=== PATIENT | female | born 2005 | race Caucasian/White ===

== ENCOUNTER 2024-12-11 17:03 | Emergency (ER) | payer BC, SELFPAY ==
[2024-12-11 17:11] VITALS: BP 168/99; PULSE 101; RESP 20; TEMP 37.2; O2SAT 94; BMI 31.9
--- NOTE | 2024-12-11 17:30 | ED_ITS ---
HPI - Nausea/Vomiting/Diarrhea General Chief complaint: Nausea/Vomiting Stated complaint: Vomiting/diarrhea/nausea Time Seen by Provider: 12/11/24 17:17 History of Present Illness HPI Narrative: This 18-year-old female comes in reporting persistent vomiting. She states he a has had episodes like this in the past here and there. She states that it seems to help a bit if she gets in a hot shower. She does use marijuana daily but states that she has not for a couple days recently. Related Data Home Medications ?Medication ?Instructions ?Recorded ?Confirmed aripiprazole IM 12/11/24 Allergies Allergy/AdvReac Type Severity Reaction Status Date / Time No Known Drug Allergies Allergy Verified 12/11/24 17:14 Review of Systems Status of ROS: Reports: 10 or more systems reviewed and unremarkable except as noted in History and below Narrative: Constitutional: No fevers, no weight gain or loss. Eyes: No discharge. No vision changes. HENT: No congestion, no sore throat, no ear pain. Cardiovascular: No chest pain, no palpitations. Respiratory: No shortness of breath, no wheezes, no cough. Gastrointestinal: No diarrhea. Upper epigastric abdominal pain with persistent vomiting. Genitourinary: No dysuria, no hematuria. Musculoskeletal: Normal range of motion. Skin: No rashes, no pruritis. Neurological: No dizziness, weakness, sensory change, speech change. Endo/Heme/Allergies: No bruising or bleeding. No polydipsia. Pysch: no suicidality, no anxiety, no insomnia. All other systems reviewed and are negative. PFSH PFS Social History Smoking Status: Never smoker Do you use any of these nicotine containing products: None How often do you have a drink containing alcohol: monthly or less How often do you have six or more drinks on one occasion: Never AUDIT-C Alcohol total score: 1 Non-prescribed substance use: marijuana (any form) Exam Narrative: Exam Narrative: Constitutional: Well-developed, well-nourished, no acute distress. HEENT: Normocephalic, atraumatic. Neck: Normal range of motion. Nontender. Supple. Heart: Regular. No murmurs. Normal rate. Intact distal pulses. Lungs: Clear to auscultation. No chest discomfort. No wheezes, rhonchi, or rales. Abdomen: Normal bowel sounds. Tenderness in the upper epigastrium. No rebound tenderness. Genitalia: Deferred. Back: No midline tenderness. Normal range of motion. Extremities: Normal range of motion. No injury. Skin: Intact. No rash. Warm. No erythema or pallor. Neurologic: No altered sensation. No weakness. Alert and oriented. Psychiatric: No suicidality. No anxiety or depression. No insomnia. Nursing notes and vitals signs are reviewed. Const: Vital Signs, click to edit/add: Vital Signs - 24 hr 12/11/24 17:11 Temperature 98.9 F Pulse Rate [Pulse Oximeter] 101 H Respiratory Rate 20 Blood Pressure [Ri ght Upper Arm] 168/99 H Pulse Oximetry 94 Oxygen Delivery Me thod Room Air Course Vital Signs Vital signs: Initial Vital Signs Temperature 98.9 F 12/11/24 17:11 Temperature Source Temporal Artery Scan 12/11/24 17:11 Pulse Rate 101 H 12/11/24 17:11 Respiratory Rate 20 12/11/24 17:11 Blood Pressure 168/99 H 12/11/24 17:11 Blood Pressure Mean 122 H 12/11/24 17:11 Blood Pressure Position Sitting 12/11/24 17:11 Pulse Oximetry 94 12/11/24 17:11 Oxygen Delivery Method Room Air 12/11/24 17:11 Vital Signs Temperature 98.9 F 12/11/24 17:11 Pulse Rate 101 H 12/11/24 17:11 Respiratory Rate 20 12/11/24 17:11 Blood Pressure 168/99 H 12/11/24 17:11 Pulse Oximetry 94 12/11/24 17:11 Oxygen Delivery Method Room Air 12/11/24 17:11 Temperature 98.9 F 12/11/24 17:11 Pulse Rate 101 H 12/11/24 17:11 Respiratory Rate 20 12/11/24 17:11 Blood Pressure 168/99 H 12/11/24 17:11 Pulse Oximetry 94 12/11/24 17:11 Oxygen Delivery Method Room Air 12/11/24 17:11 Medications Administered Medications: Discontinued Medications Generic Name Dose Route Start Last Admin Trade Name Freq PRN Reason Stop Dose Admin Haloperidol Lactate 5 mg 12/11/24 17:29 12/11/24 17:51 Haloperidol 5 Mg/Ml Inj IV 12/11/24 17:30 5 mg ONCE ONE Administration Sodium Chloride 500 mls @ 500 mls/hr 12/11/24 17:29 12/11/24 18:15 0.9 % Sodium Chloride 500 Ml IV 12/11/24 18:28 Infused .Q1H ONE Infusion Ondansetron HCl 4 mg 12/11/24 17:29 12/11/24 17:53 Ondansetron 2 Mg/Ml Inj IVP 12/11/24 17:30 4 mg ONCE ONE Administration MDM - Nausea/Vomiting/Diarrhea MDM Narrative Medical decision making narrative: This patient comes in with persistent vomiting related to marijuana use. An IV was established and she received 5 mg of Haldol and 4 mg of Zofran. She also received 500 mL of normal saline. She states that she is feeling much better. She is okay to be discharged home and I advised her to discontinue using marijuana. Discharge Plan Discharge Clinical Impression: Cyclical vomiting Patient Disposition: Home, Self-Care Condition: Improved Additional Instructions: Take frequent sips of fluids and increase diet otherwise as tolerated. Use [id number] medicines as needed and directed. Avoid using marijuana. Follow up with MD return if worsening. Prescriptions: No Action aripiprazole [Nikolas Aranaa] IM Follow Up/Referrals: Provider,Not a Local [Primary Care Provider] - Stand Alone Forms: [employer] Info Instructions
[2024-12-11] MEDS: 0.9 % SODIUM CHLORIDE 500 ML 500 ML IV (17:50)
[2024-12-11] MEDS: HALOPERIDOL 5 MG/ML INJ IV (17:51)
[2024-12-11] MEDS: ONDANSETRON 2 MG/ML inj 4 MG IVP (17:53)
--- OUTSIDE RECORDS SUMMARY | 2024-12-11 18:33 | XMS_ITS | Clinical Summary ---
Author Organization [facility] Address [address] [place] [address]. [place] [address] Care Team Providers Care Flux Mixer Name Role Phone No Ref-Primary, Physician Primary Care Provider Allergies Active Allergy Reactions Criticality Noted Date Comments Seasonal Allergies Other (See Comments) Low 020 Medications * This document contains information received from the source organization and may not represent a complete record from that organization. ARIPiprazole ER (ABILIFY MAINTENA) 400 MG extended release inj syringe Inject 400 mg into the muscle every 30 days 022 Active valACYclovir (VALTREX) 500 MG tablet Take 500 mg by mouth 2 times daily Active acetaminophen (TYLENOL) 325 MG tabletIndicati ons: (spontaneous vaginal delivery) Take 2 tablets (650 mg) by mouth every 4 hours as needed for mild pain or fever (greater than or equal to 38 C /100.4 F (oral) or 38.5 C/ 101.4 F (core).) 023 Active divalproex sodium extended-relea se (DEPAKOTE ER) 500 MG 24 hr tablet Take 2 tablets (1,000 mg) by mouth at bedtime 30 tablet 1 024 Active prochlorperazi ne (COMPAZINE) [address] 1 suppository (25 mg) rectally every 12 hours as needed for nausea. 6 suppository 024 Active ondansetron (ZOFRAN ODT) 4 MG ODT tab Take 1 tablet (4 mg) by mouth every 6 hours as needed for nausea. 8 tablet 024 2024 Discontinued ondansetron (ZOFRAN ODT) 4 MG ODT tab Take 1 tablet (4 mg) by mouth every 8 hours as needed for nausea. 9 tablet 025 2024 Active Problems Problem Noted Date Diagnosed Date Suicidal ideation 05/07/2024 Drug use 05/07/2024 labor 02/05/2023 delivery 02/05/2023 (spontaneous vaginal delivery) 02/05/2023 H/O herpes genitalis 02/05/2023 Short cervix affecting 02/05/2023 Bipolar disorder 02/05/2023 state, incidental 08/13/2022 Pelvic inflammatory disease 08/13/2022 Bacterial vaginosis in 08/13/2022 Anxiety Resolved Problems Problem Noted Date Diagnosed Date Resolved Date Indication for care in labor or delivery 01/30/2023 02/05/2023 31 weeks gestation of 01/30/2023 02/05/2023 Encounters Date Type Department Care Team Description 11/15/2024 10:57 AM CHANGE CONTROL COORDINATOR - 11/15/2024 5:48 PM [facility] Emergency Dept [address] [place] [address] Ankit Bailey MD Peery, Stephen, MD Nausea and vomiting, unspecified vomiting type; Nonspecific abdominal pain; Anxiety Discharge Disposition: Home or Self Care 11/15/2024 Travel from Last 3 Months Family History Medical History Relation Comments Bipolar Disorder Father Depression Father Bipolar Disorder Maternal Grandmother Anxiety Disorder Mother Bipolar Disorder Mother Depression Mother No Known Problems Other Relation Status Comments Father Maternal Grandmother Mother Other Social History Tobacco Use Types Packs/Day Years Used Date Smoking Tobacco: Never Smokeless Tobacco: Never Tobacco Cessation:Counseling Given: Yes Alcohol Use Standard Drinks/Week Comments Not Currently 0 (1 standard drink = 0.6 oz pur e alcohol) stopped for PHQ-2 Answer Date Recorded PHQ-2 Score 2 06/07/2024 [place] Depression Scale Answer Date Recorded Last EPDS Total Score Not on file 02/07/2023 The thought of harming myself has occurred to me . Never 02/07/2023 Adolescent Education Answer Date Record ed Getting School Help Needed Not on file 07/08 Comments No Sex and Gender Information Value Date Recorded Sex Assigned at Not on file Legal Sex Female 1:51 PM CDT Gender Identity Not on file Sexual Orientation Not on file Last Filed Vital Signs Vital Sign Reading Time Taken Comments Blood Pressure 134/87 11/15/2024 2:15 PM CHANGE CONTROL COORDINATOR Pulse 78 11/15/2024 4:25 PM CHANGE CONTROL COORDINATOR Temperature 36.2 C (97.1 F) 11/15/2024 11:21 AM CHANGE CONTROL COORDINATOR Respiratory Rate 18 11/15/2024 11:21 AM CHANGE CONTROL COORDINATOR Oxygen Saturation 97% 11/15/2024 4:25 PM CHANGE CONTROL COORDINATOR Inhaled Oxygen Concentration - - Weight 79.4 kg (175 lb) 06/04/2024 10:49 AM CDT pt reported Height 161.3 cm (5' 3.5) 06/04/2024 10:49 AM CD T Body Mass Index 30.51 06/04/2024 10:49 AM CDT Plan of Treatment Health Maintenance Due Date Last Done Comments ADVANCE CARE PLANNING 2003 ANNUAL REVIEW OF HM ORDERS 2003 MENINGITIS B IMMUNIZATION (2 of 2 - Bexsero SCDM 2-dose series) 05/31/2021 12/01/2020 HEPATITIS C SCREENING 12/17/2021 YEARLY PREVENTIVE VISIT 06/18/2022 06/18/2021, 10/31 COVID-19 Vaccine ( season) 2024 08/12/2023, 04/16/2021, 03/25/2021 INFLUENZA VACCINE (#1) 2024 , 07/07/2022, 08/28/2020, Additional history exists PHQ-2 (once per calendar year) 2024 06/07/2024, 06/07/2024, 05/21/2024, Additional history exists CHLAMYDIA SCREENING 07/15/2025 07/15/2024, 01/30/2023, 08/13/2022, Additional history exists DTAP/TDAP/TD IMMUNIZATION (8 - Td or Tdap) 01/04/2033 01/04/2023, 01/24/2015, 04/18/2009, Additional history exists ZOSTER IMMUNIZATION (1 of 2) 12/17/2053 HEPATITIS B IMMUNIZATION Completed 007, 02/12/2005, 06/23/2004, Additional history exists Pneumococcal Vaccine: Pediatrics (0 to 5 Years) and At-Risk Patients (6 to 49 Years) Aged Out 04/24/2007, 04/18/2007, 02/12/2005, Additional history exists No longer eligible based on patient's age to complete this topic HPV IMMUNIZATION Completed 07/13/2018, 01/24/2015 MENINGITIS IMMUNIZATION Completed 12/25/2019, 01/24 HIV SCREENING Completed 08/15/2022 Procedures Procedure Name Priority Date/Time Associated Diagnosis Comments ROUTINE UA WITH MICROSCOPIC STAT 11/15/2024 1:43 PM CHANGE CONTROL COORDINATOR CBC WITH PLATELETS & DIFFERENTIAL STAT 11/15/2024 11:49 AM CHANGE CONTROL COORDINATOR CBC WITH PLATELETS AND DIFFERENTIAL STAT 11/15/2024 11:49 AM CHANGE CONTROL COORDINATOR INFLUENZA A/B, RSV AND SARS-COV2 PCR STAT 11/15/2024 11:49 AM CHANGE CONTROL COORDINATOR ETHYL ALCOHOL LEVEL STAT 11/15/2024 1 1:49 AM CHANGE CONTROL COORDINATOR HCG QUALITATIVE STAT 11/15/2024 11:49 AM CHANGE CONTROL COORDINATOR LIPASE STAT 11/15/2024 11:49 AM CHANGE CONTROL COORDINATOR HEPATIC FUNCTION PANEL STAT 11/15/2024 11:49 AM CHANGE CONTROL COORDINATOR BASIC METABOLIC PANEL STAT 11/15/2024 11:49 AM CHANGE CONTROL COORDINATOR EKG 12-LEAD, TRACING ONLY STAT 11/15/2024 11:31 AM CHANGE CONTROL COORDINATOR CHLAMYDIA TRACHOMATIS/NEISSERIA GONORRHOEAE BY PCR STAT 07/15/2024 9:43 PM CDT HIV ANTIGEN ANTIBODY COMBO Add-On 08/15/2022 3:20 PM CDT from Last 3 Months or Most Recently Relevant to Health Maintenance Results * (ABNORMAL) UA with Microscopic (11/15/2024 1:43 PM CHANGE CONTROL COORDINATOR) Color Urine Straw Colorless, Straw, Light Yellow, Yellow 11/15/2024 2:07 PM CHANGE CONTROL COORDINATOR LABORATORY Appearance Urine Clear Clear 11/15/19 2:07 PM CHANGE CONTROL COORDINATOR LABORATORY Glucose Urine 100(A) Negative mg/dL 11/15/2024 2:07 PM CHANGE CONTROL COORDINATOR LABORATORY Bilirubin Urine Negative Negative 2:07 PM CHANGE CONTROL COORDINATOR LABORATORY Ketones Urine 40(A) Negative mg/dL 11/15/2024 2:07 PM CHANGE CONTROL COORDINATOR LABORATORY Specific Martin Urine 1.017 1.003 - 1.035 11/15/2024 2:07 PM CHANGE CONTROL COORDINATOR LABORATORY Blood Urine Negative Negative 11/15/2024 2:07 PM CHANGE CONTROL COORDINATOR LABORATORY pH Urine 7.0 5.0 - 7.0 11/15/2024 2:07 PM CHANGE CONTROL COORDINATOR LABORATORY Protein Albumin Urine Negative Negative mg/dL 11/15/2024 2:07 PM CHANGE CONTROL COORDINATOR LABORATORY Urobilinogen Urine Normal Normal, 2.0 mg/dL 11/15/2024 2:07 PM CHANGE CONTROL COORDINATOR LABORATORY Nitrite Urine Negative Negative 11/15/2024 2:07 PM CHANGE CONTROL COORDINATOR LABORATORY Leukocyte Esterase Urine Negative Negative 11/15/2024 2:07 PM CHANGE CONTROL COORDINATOR LABORATORY Mucus Urine Present(A) None Seen /LPF 11/15/2024 2:07 PM CHANGE CONTROL COORDINATOR LABORATORY RBC Urine 1 <=2 /HPF 11/15/2024 2:07 PM CHANGE CONTROL COORDINATOR LABORATORY WBC Urine <1 <=5 /HPF 11/15/2024 2:07 PM CHANGE CONTROL COORDINATOR LABORATORY Squamous Epithelials Urine 1 <=1 /HPF 11/15/2024 2:07 PM CHANGE CONTROL COORDINATOR LABORATORY Urine MID-STREAM URINE SPECIMEN / Unknown Non-blood Collection / Unknown 11/15/2024 1:43 PM CHANGE CONTROL COORDINATOR 11/15/2024 1:52 PM CHANGE CONTROL COORDINATOR us Ankit Bailey MD LAB - URINE ORDERABLES Final Result LABORATORY [facility] [address] Lab (1st floor, no room number) [place] [address] * (ABNORMAL) CBC with platelets and differential (11/15/2024 11:49 AM CHANGE CONTROL COORDINATOR) WBC Count 15.6(H) 4.0 - 11.0 10e3/uL 11/15/2024 12:32 PM CHANGE CONTROL COORDINATOR [facility] LABORATORY RBC Count 4.44 3.80 - 5.20 10e6/uL 11/15/2024 12:32 PM CHANGE CONTROL COORDINATOR [facility] Hemoglobin 13.8 11.7 - 15.7 g/dL 11/15/2024 12:32 PM CHANGE CONTROL COORDINATOR [facility] Hematocrit 41.7 35.0 - 47.0 % 11/15/2024 12:32 PM CHANGE CONTROL COORDINATOR [facility] MCV 94 78 - 100 fL 11/15/2024 12:32 PM CHANGE CONTROL COORDINATOR [facility] LAB[facility]ATORY MCH 31.1 26.5 - 33.0 pg 11/15/2024 12:32 PM CHANGE CONTROL COORDINATOR [facility]AT[facility] MCHC 33.1 31.5 - 36.5 g/dL 11/15/2024 12:32 PM CHANGE CONTROL COORDINATOR [facility] RDW 12.6 10.0 - 15.0 % 11/15/2024 12:32 PM CHANGE CONTROL COORDINATOR [facility] Platelet Count 330 150 - 450 10e3/uL 11/15/2024 12:32 PM CHANGE CONTROL COORDINATOR [facility] % Neutrophils 64 % 11/15/2024 12:32 PM CHANGE CONTROL COORDINATOR [facility] % Lymphocytes 28 % 11/15/2024 12:32 PM CHANGE CONTROL COORDINATOR [facility] % Monocytes 6 % 11/15/2024 12:32 PM CHANGE CONTROL COORDINATOR [facility] % Eosinophils 0 % 11/15/2024 12:32 PM CHANGE CONTROL COORDINATOR [facility] % Basophils 0 % 11/15/2024 12:32 PM CHANGE CONTROL COORDINATOR [facility] % Immature Granulocytes 1 % 11/15/2024 12:32 PM CHANGE CONTROL COORDINATOR [facility] LAB[facility]ATORY NRBCs per 100 WBC 0 <1 /100 025 12:32 PM CHANGE CONTROL COORDINATOR [facility] LAB[facility]ATORY Absolute Neutrophils 10.0(H) 1.6 - 8.3 10e3/uL 11/15/2024 12:32 PM CHANGE CONTROL COORDINATOR [facility] LAB[facility]AT[facility] Absolute Lymphocytes 4.3 0.8 - 5.3 10e3/uL 11/15/2024 12:32 PM CHANGE CONTROL COORDINATOR [facility] LAB[facility]AT[facility] Absolute Monocytes 1.0 0.0 - 1.3 10e3/uL 11/15/2024 12:32 PM CHANGE CONTROL COORDINATOR [facility] LAB[facility]AT[facility] Absolute Eosinophils 0.1 0.0 - 0.7 10e3/uL 11/15/2024 12:32 PM CHANGE CONTROL COORDINATOR [facility] LABORATORY Absolute Basophils 0.1 0.0 - 0.2 10e3/uL 11/15/2024 12:32 PM CHANGE CONTROL COORDINATOR [facility] LAB[facility]AT[facility] Absolute Immature Granulocytes 0.2 <=0.4 10e3/uL 11/15/2024 12:32 PM CHANGE CONTROL COORDINATOR [facility] LAB[facility]ATORY Absolute NRBCs 0.0 10e3/uL 11/15/2024 12:32 PM CHANGE CONTROL COORDINATOR LABORATORY Blood BLOOD SPECIMEN / Unknown Venipuncture / Unknown 11/15/2024 11:49 AM CHANGE CONTROL COORDINATOR 11/15/2024 12:24 PM CHANGE CONTROL COORDINATOR us Ankit Bailey MD LAB - BLOOD ORDERABLES Final Result LABORATORY [facility] [address] [facility] Lab (1st floor, no room number) [place] [address] * Influenza A/B, RSV and SARS-CoV2 PCR (COVID-19) Nasopharyngeal (11/15/2024 11:49 AM CHANGE CONTROL COORDINATOR) [facility] Influenza A PCR Negative Negative 11/15/2024 1:41 PM CHANGE CONTROL COORDINATOR [facility] LABORATORY Influenza B PCR Negative Negative 11/15/2024 1:41 PM CHANGE CONTROL COORDINATOR [facility] LABORATORY RSV PCR Negative Negative 11/15/2024 1:41 PM CHANGE CONTROL COORDINATOR LABORATORY SARS CoV2 PCR Negative Negative 11/15/2024 1:41 PM CHANGE CONTROL COORDINATOR LABORATORY Comment:NEGATIVE: SARS-CoV-2 (COVID-19) RNA not detected, presumed negative. Swab NASOPHARYNGEAL STRUCTURE / Unknown Non-blood Collection / Unknown 11/15/2024 11:49 AM CHANGE CONTROL COORDINATOR 11/15/2024 12:24 PM CHANGE CONTROL COORDINATOR Narrative LABORATORY - 11/15/2024 1:41 PM CHANGE CONTROL COORDINATOR Testing was performed using the Xpert Xpress CoV2/Flu/RSV Assay on the [employer] GeneXpert Instrument. This test should be ordered for the detection of SARS- CoV2, influenza, and RSV viruses in individuals with signs and symptoms of respiratory tract infection. This test is for in vitro diagnostic use under the [place] FDA for laboratories certified under CLIA to perform high or moderate complexity testing. This test has been [place] FDA cleared. A negative result does not rule out the presence of PCR inhibitors in the specimen or target RNA in concentration below the limit of detection for the assay. If only one viral target is positive but coinfection with multiple targets is suspected, the sample should be re-tested with another FDA cleared, approved, or authorized test, if coninfection would change clinical management. This test was validated by the [facility]. These laboratories are certified under the Clinical Laboratory Improvement Amendments of 1988 (CLIA-88) as qualified to perfom high complexity laboratory testing. Ankit Bailey MD LAB - MICRO GENERAL ORD ERABLES Final Result [facility] [address] [facility] ([facility] floor, no room number) [place] [address] * Lipase (11/15/2024 11:49 AM CHANGE CONTROL COORDINATOR) Lipase 14 13 - 60 U/L 11/15/2024 12:54 PM CHANGE CONTROL COORDINATOR LABORATORY Blood BLOOD SPECIMEN / Unknown Venipuncture / Unknown 11/15/2024 11:49 AM CHANGE CONTROL COORDINATOR 11/15/2024 12:24 PM CHANGE CONTROL COORDINATOR Ankit Bailey MD LAB - BLOOD ORDERABLES Final Result [facility] [address] [facility] Lab (1st floor, no room number) [place] [address] * Hepatic function panel (11/15/2024 11:49 AM CHANGE CONTROL COORDINATOR) Protein Total 6.9 6.4 - 8.3 g/dL 11/15/2024 12:54 PM CHANGE CONTROL COORDINATOR [facility] LAB[facility]AT[facility] Albumin 4.3 3.5 - 5.2 g/dL 11/15/2024 12:54 PM CHANGE CONTROL COORDINATOR LABORATORY Bilirubin Total 0.2 <=1.2 mg/dL 11/15/2024 12:54 PM CHANGE CONTROL COORDINATOR [facility] Alkaline Phosphatase 57 40 - 150 U/L 11/15/2024 12:54 PM CHANGE CONTROL COORDINATOR [facility] LAB[facility]AT[facility] AST 18 0 - 45 U/L 11/15/2024 12:54 PM CHANGE CONTROL COORDINATOR [facility] LAB[facility] ALT 21 0 - 50 U/L 11/15/2024 12:54 PM CHANGE CONTROL COORDINATOR [facility] Bilirubin Direct <0.20 0.00 - 0.30 mg/dL 11/15/2024 12:54 PM CHANGE CONTROL COORDINATOR [facility] LABORATORY Blood BLOOD SPECIMEN / Unknown Venipuncture / Unknown 11/15/2024 11:49 AM CHANGE CONTROL COORDINATOR 11/15/2024 12:24 PM CHANGE CONTROL COORDINATOR Ankit Bailey MD LAB - BLOOD ORDERABLES Final Result [facility] [address] Lab (1st floor, no room number) [place] [phone] * HCG QUALitative (blood) (11/15/2024 11:49 AM CHANGE CONTROL COORDINATOR) hCG Serum Qualitative Negative Negative KENA 11/15/2024 12:59 PM CHANGE CONTROL COORDINATOR [facility] LABORATORY Comment:This test is for scr eening purposes. Results should be interpreted along with the clinical picture. Confirmation testing is available if warranted by ordering [id number], HCG Quantitative . Blood BLOOD SPECIMEN / Unknown Venipuncture / Unknown 11/15/2024 11:49 AM CHANGE CONTROL COORDINATOR 11/15/2024 12:24 PM CHANGE CONTROL COORDINATOR Ankit Bailey MD LAB - BLOOD ORDERABLES Final Result [facility] [address] Lab (1st floor, no room number) [place] [address] * Alcohol level blood (11/15/2024 11:49 AM CHANGE CONTROL COORDINATOR) Alcohol ethyl <0.01 <=0.01 g/dL 11/15/2024 12:54 PM CHANGE CONTROL COORDINATOR [facility] LABORATORY Blood BLOOD SPECIMEN / Unknown Venipuncture / Unknown 11/15/2024 11:49 AM CHANGE CONTROL COORDINATOR 11/15/2024 12:24 PM CHANGE CONTROL COORDINATOR us Ankit Bailey MD LAB - BLOOD ORDERABLES Final Result LABORATORY [facility] [address] Lab (1st floor, no room number) [place] [address] * (ABNORMAL) Basic metabolic panel (11/15/2024 11:49 AM CHANGE CONTROL COORDINATOR) [facility] Sodium 137 135 - 145 mmol/L 11/15/2024 12:54 PM [facility] Potassium 3.6 3.4 - 5.3 mmol/L 11/15/2024 12:54 PM [facility] Chloride 103 98 - 107 mmol/L 11/15/2024 12:54 PM [facility] Carbon Dioxide (CO2) 22 22 - 29 mmol/L 11/15/2024 12:54 PM [facility] Anion Gap 12 7 - 15 mmol/L 11/15/2024 12:54 PM [facility] Urea Nitrogen 10.2 6.0 - 20.0 mg/dL 11/15/2024 12:54 PM [facility] Creatinine 0.84 0.51 - 0.95 mg/dL 11/15/2024 12:54 PM [facility] GFR Estimate >90 >60 mL/min/1.7 3m2 11/15/2024 12:54 PM [facility] Comment:eGFR calculated [facility] 2020 CKD-EPI equation. Calcium 8.9 8.8 - 10.4 mg/dL 11/15/2024 12:54 PM [facility] Glucose 150(H) 70 - 99 mg/dL 11/15/2024 12:54 PM [facility] Blood BLOOD SPECIMEN / Unknown Venipuncture / Unknown 11/15/2024 11:49 AM CHANGE CONTROL COORDINATOR 11/15/2024 12:24 PM CHANGE CONTROL COORDINATOR Ankit Bailey MD LAB - BLOOD ORDERABLES Final Result LABORATORY [facility] [address] Lab (1st floor, no room number) [place] [address], [facility] * EKG 12 lead (11/15/2024 11:31 AM CHANGE CONTROL COORDINATOR) Systolic Blood Pressure mmHg RADIOLOGY RESULTS Diastolic Blood Pressure mmHg RADIOLOGY RESULTS Ventricular Rate 80 BPM RAD IOLOGY RESULTS Atrial Rate 80 BPM RADIOLOG Y RESULTS AR Interval 144 ms RADIOLOG Y RESULTS QRS Duration 82 ms RADIOLO GY RESULTS QT 414 ms RADIOLOGY RESULTS QTc 477 ms RADIOLOGY RESULTS P [place] 48 degrees RADIOLOGY RESULTS R AXIS 58 degrees RADIOLOGY RESULTS T [place] 48 degrees RADIOLOGY RESULTS Interpretation ECG Sinus rhythm Normal ECG No previous ECGs available Unconfirmed report - interpretation of this ECG is computer generated - see medical record for final interpretation Confirmed by - EMERGENCY ROOM, PHYSICIAN ([id number]), business editor TATA CRUZ ([id number]) on 11/15/2024 2:28:14 PM RADIOLOGY RESULTS 11/15/2024 11:3 1 AM CHANGE CONTROL COORDINATOR 11/15/2024 2:28 PM CHANGE CONTROL COORDINATOR us Ankit Bailey MD ECG ORDERABLES Edited Result - Final RADIOLOGY RESULTS * Chlamydia trachomatis/Neisseria gonorrhoeae by PCR (07/15/2024 9:43 PM CDT) Chlamydia Trachomatis Negative Negative 07/16/2024 11:01 AM CDT [facility] Comment: Negative for C. trachomatis rRNA by tube worker mediated amplification. A negative result by tube worker mediated amplification does not preclude the presence of infection because results are dependent on proper and adequate collection, absence of inhibitors and sufficient rRNA to be detected. Neisseria gonorrhoeae Negative Negative 07/16/2024 11:01 AM CDT [facility] Comment:Negative for N. gono rrhoeae rRNA by tube worker mediated amplification. A negative result by tube worker mediated amplification does not preclude the presence of C. trachomatis infection because results are dependent on proper and adequate collection, absence of inhibitors and sufficient rRNA to be detected. Swab CERVIX UTERI STRUCTURE / Unknown Non-blood Collection / Unknown 07/15/2024 9:43 PM CDT 07/15/2024 9:47 PM CDT us Paul Bryant MD LAB - MICRO GENERAL MIKE OSULLIVAN Final Result [facility]. Diseases Diag. Lab [address] [facility] [address] [facility] [place] [address] * HIV Antigen Antibody Combo (08/15/2022 3:20 PM CDT) HIV Antigen Antibody Combo Nonreactive Nonreactive 08/16/2022 4:51 PM CDT [facility] DO Comment:HIV-1 p24 Ag & HIV-1 /HIV-2 Ab Not Detected Blood STRUCTURE OF RIGHT UPPER LIMB / Unknown Venipuncture / Unknown 08/15/2022 3:20 PM CDT 08/15/2022 3:52 PM CDT Sharda Singer MD LAB - BLOOD ORDERABLES Final Res ult [facility]Endo [address] [facility], [id number] [phone] from Last 3 Months or Most Recently Relevant to Health Maintenance Insurance [id number] [place] [employer] [facility] [place] [facility] [place] Address: [id number] [place] [phone] [place] [address] [facility] [place] [place] Address: [address] [place] [phone] Advance Directives For more information, please contact: [phone] * Full Code (Latest Code Status on File) Date Activated Date Inactivated Comments 02/05/2023 8:57 PM 02/08/2023 3:08 PM All basic an d advanced life-sustaining interventions are performed as appropriate Question Answer Comments Code status determined by: Discussion with wilner nt/ legal decision maker * Full Code Date Activated Date Inactivated Comments 01/30/2023 6:17 PM 02/05/2023 8:57 PM All basic an d advanced life-sustaining interventions are performed as appropriate Question Answer Comments Code status determined by: Other (please eitan ornelas) * Full Code Date Activated Date Inactivated Comments 08/14/2022 1:10 AM 08/19/2022 2:29 PM All basic a nd advanced life-sustaining interventions are performed as appropriate Question Answer Comments Code status determined by: Discussion with mileye nt/ legal decision maker Care Teams Flux Mixer Relationship Specialty Start Date End Date No Ref-Primary, Physician PCP - General 07/04/19
--- OUTSIDE RECORDS SUMMARY | 2024-12-11 18:33 | XMS_ITS | Encounter Summary ---
Author Organization [place] Address [address] [place] [address]. [place] [address] Care Team Providers Care Telephone Technician Name Role Phone No Ref-Primary, Physician Primary Care Provider Reason for Visit * Reason Comments Ingestion Encounter Details Date Type Department Care Team (Late st Contact Info) Description 11/15/2024 10:57 AM STUDENT - 11/15/2024 5:48 PM [facility] Emergency Dept [address] [place] [address] Ankit Bailey MD [facility] [address] [address] Bob Torres MD [facility] [address], [address] [address] Nausea and vomiting, unspecified vomiting type; Nonspecific abdominal pain; Anxiety Discharge Disposition: Home or Self Care Social History Tobacco Use Types Packs/Day Years Used Date Smoking Tobacco: Never Smokeless Tobacco: Never Alcohol Use Standard Drinks/Week Comments Not Currently 0 (1 standard drink = 0.6 oz pur e alcohol) stopped for PHQ-2 Answer Date Recorded PHQ-2 Score 2 06/07/2024 Boomer Depression Scale Answer Date Recorded Last EPDS [...] on file Sexual Orientation Not on file documented as of this encounter Last Filed Vital Signs Vital Sign Reading Time Taken Comments Blood Pressure 134/87 11/15/2024 2:15 PM STUDENT Pulse 78 11/15/2024 4:25 PM STUDENT Temperature 36.2 C (97.1 F) 11/15/2024 11:21 AM STUDENT Respiratory Rate 18 11/15/2024 11:21 AM STUDENT Oxygen Saturation 97% 11/15/2024 4:25 PM STUDENT Inhaled Oxygen Concentration - - Weight - - Height - - Body Mass Index - - documented in this encounter Discharge Instructions * Attachments The following attachments cannot be sent through Care Everywhere. * Abdominal Pain (Citizen [place]) * Nausea and Vomiting ([place]izen [place]) documented in this encounter Medications at Time of Discharge acetaminophen (TYLENOL) 325 MG tabletIndication s: (spontaneous vaginal delivery) Take 2 tablets (650 mg) by mouth every 4 hours as needed for mild pain or fever (greater than or equal to 38 C /100.4 F (oral) or 38.5 C/ 101.4 F (core).) 02/08/2023 ARIPiprazole ER (ABILIFY MAINTENA) 400 MG extended release inj syringe Inject 400 mg into the muscle every 30 days 05/10/2022 divalproex sodium extended-release (DEPAKOTE ER) 500 MG 24 hr tablet Take 2 tablets (1,000 mg) by mouth at bedtime 30 tablet 1 05/09/2024 prochlorperazine (COMPAZINE) [address] 1 suppository (25 mg) rectally every 12 hours as needed for nausea. 6 suppository 07/15/2024 valACYclovir (VALTREX) 500 MG tablet Take 500 mg by mouth 2 times daily ondansetron (ZOFRAN ODT) 4 MG ODT tab Take 1 tablet (4 mg) by mouth every 8 hours as needed for nausea. 9 tablet 11/15/2024 11/18/19 25 documented as of this encounter ED Notes * Narda Griffith RN - 11/15/2024 11:22 AM CST Pt arrives via ems- was picked up from [place] where she is homeless living in her car. Pt has past hx of anxiety and depressions- states its gotten so bad that she took 100mg zoloft out of desperation. Denies SI/HI. 8/10 abdominal pain - given 4mg zofran w no relief. VSS Triage Assessment (Adult) Row Name 11/15/24 1122 Triage Assessment Airway WDL WDL Respiratory WDL Respiratory WDL WDL Skin Circulation/Temperature WDL Skin Circulation/Temperature WDL WDL Cardiac WDL Cardiac WDL WDL ENT * Ankit Bailey MD - 11/15/2024 11:00 AM CST Emergency Department Note History of Present Illness Chief Complaint Ingestion HPI Gifty Marquez is a 18 year old female with a history as noted below who presents to the emergency department for ingestion. EMS states that this morning, the patient took 100 mg of her friend'Fernandoolohussein. She reports that she took Zoloft in the past for her hx of anxiety and depression and needed to take something today for current anxiety and depression. She denies any suicidal ideations and adds that this was not a suicide attempt. She reports that within the past 1 hour, she has experienced 3 episodes of nausea and vomiting. She also endorses some lightheadedness and mid sternal chesttightness. She was given 4 mg of PO Zofran by EMS. BG was 140. She notes that for the past few days, she has been feeling fine. No urinary symptoms. No cough or cold symptoms. No concern for . Denies any coingestions or ETOH use today. She reports that for the past few weeks, she has been living in her car in [place] and adds that she is unsure when her housing situation may improve. Independent Historian None Review of External Notes Past Medical History Medical History and Problem List Anxiety Alcohol use disorder Bipolar disorder BV in Chlamydia MDD HSV Hyperemesis gravidarum Suicide attempt PID PTSD Medications ARIPiprazole ER (ABIJOSELYN MAINTENA) 400 MG extended release inj syringe divalproex sodium extended-release (DEPAKOTE ER) 500 MG 24 hr tablet ondansetron (ZOFRAN ODT) 4 MG ODT tab prochlorperazine (COMPAZINE) 25 MG suppository valACYclovir (VALTREX) 500 MG tablet Surgical History Resection of tonsils Physical Exam Patient Vitals for the past 24 hrs: BP Temp Temp src Pulse Resp SpO2 11/15/24 1445 -- -- -- 65 -- 96 % 11/15/24 1415 134/87 -- -- 67 -- 95 % 11/15/24 1400 122/79 -- -- 84 -- 96 % 11/15/24 1345 (!) 139/92 -- -- 91 -- 93 % 11/15/24 1121 132/76 97.1 ??F (36.2 ??C) Temporal 81 18 99 % Physical Exam HENT: mmm, no rhinorrhea Eyes: periorbital tissues and sclera normal Neck: supple, no abnormal swelling Lungs: CTAB, no resp distress CV: rrr, no m/r/g, ppi Abd: soft, nontender, nondistended, no rebound/masses/guarding/hsm Ext: no peripheral edema Skin: warm, dry, well perfused, no rashes/bruising/lesions on exposed skin Neuro: alert, MAEE, no gross motor or sensory deficits, gait stable Psych: Normal mood, normal affect, no suicidal homicidal ideation Diagnostics Lab Results Labs Ordered and Resulted from Time of ED Arrival to Time of ED Departure BASIC METABOLIC PANEL - Abnormal Result Value Sodium 137 Potassium 3.6 Chloride 103 Carbon Dioxide (CO2) 22 Anion Gap 12 Urea Nitrogen 10.2 Creatinine 0.84 GFR Estimate >90 Calcium 8.9 Glucose 150 (*) ROUTINE UA WITH MICROSCOPIC - Abnormal Color Urine Straw Appearance Urine Clear Glucose Urine 100 (*) Bilirubin Urine Negative Ketones Urine 40 (*) Specific [place] Urine 1.017 Blood Urine Negative pH Urine 7.0 Protein Albumin Urine Negative Urobilinogen Urine Normal Nitrite Urine Negative Leukocyte Esterase Urine Negative Mucus Urine Present (*) RBC Urine 1 WBC Urine <1 Squamous Epithelials Urine 1 CBC WITH PLATELETS AND DIFFERENTIAL - Abnormal WBC Count 15.6 (*) RBC Count 4.44 Hemoglobin 13.8 Hematocrit 41.7 MCV 94 MCH 31.1 MCHC 33.1 RDW 12.6 Platelet Count 330 % Neutrophils 64 % Lymphocytes 28 % Monocytes 6 % Eosinophils 0 % Basophils 0 % Immature Granulocytes 1 NRBCs per 100 WBC 0 Absolute Neutrophils 10.0 (*) Absolute Lymphocytes 4.3 Absolute Monocytes 1.0 Absolute Eosinophils 0.1 Absolute Basophils 0.1 Absolute Immature Granulocytes 0.2 Absolute NRBCs 0.0 HEPATIC FUNCTION PANEL - Normal Protein Total 6.9 Albumin 4.3 Bilirubin Total 0.2 Alkaline Phosphatase 57 AST 18 ALT 21 Bilirubin Direct <0.20 LIPASE - Normal Lipase 14 HCG QUALITATIVE - Normal hCG Serum Qualitative Negative ETHYL ALCOHOL LEVEL - Normal Alcohol ethyl <0.01 INFLUENZA A/B, RSV AND SARS-COV2 PCR - Normal Influenza A PCR Negative Influenza B PCR Negative RSV PCR Negative SARS CoV2 PCR Negative Imaging None EKG ECG results from 11/15/24 EKG 12 lead Value Systolic Blood Pressure Diastolic Blood Pressure Ventricular Rate 80 Atrial Rate 80 [place] Interval 144 QRS Duration 82 QT 414 QTc 477 P [place] 48 R AXIS 58 T [place] 48 Interpretation ECG Sinus rhythm Normal ECG No previous ECGs available Unconfirmed report - interpretation of this ECG is computer generated - see medical record for final interpretation Confirmed by - EMERGENCY ROOM, PHYSICIAN ([id number]), medical editor TATA CRUZ ([id number]) on 11/15/2024 2:28:14PM Independent Interpretation None ED Course Medications Administered Medications lactated ringers BOLUS 1,000 mL (0 mLs Intravenous Stopped 11/15/24 1341) ondansetron (ZOFRAN) injection 4 mg (4 mg Intravenous $Given 11/15/24 1144) ketorolac (TORADOL) injection 15 mg (15 mg Intravenous $Given 11/15/24 1144) ondansetron (ZOFRAN) injection 4 mg (4 mg Intravenous $Given 11/15/24 1252) haloperidol lactate (HALDOL) injection 2.5 mg (2.5 mg Intravenous $Given 11/15/24 1348) diphenhydrAMINE (BENADRYL) injection 25 mg (25 mg Intravenous $Given 11/15/24 1348) lactated ringers BOLUS 1,000 mL (1,000 mLs Intravenous $New Bag 11/15/24 1348) Discussion of Management ED Course ED Course as of 11/15/24 1555 [facility] Nov 15, 2024 1109 I obtained history and examined the patient as noted above. Additional Documentation None Medical Decision Making / Diagnosis [facility] Diagnoses: None MIPS None MDM Gifty Marquez is a 18 year old female Presenting with nausea vomiting and nonspecific abdominal pain. There is also an element of anxiety. I am not concerned clinically for any intentional self-harm or overdose. Workup here unremarkable. Had some ongoing nausea and vomiting and so got additional intravenous fluid and antiemetics. There is a strong odor of THC I suspect that cyclical vomiting could be the equipment driver of her presenting symptoms. I do not see an indication for advanced imaging of the abdomen. Discussed with her that once her symptoms are controlled she will be discharged from the emergency room with antiemetics. She verbalized understanding of that. Disposition The patient was discharged. Diagnosis ICD-10-CM 1. Nausea and vomiting, unspecified vomiting type R11.2 2. Nonspecific abdominal pain R10.9 3. Anxiety F41.9 Discharge Medications New Prescriptions ONDANSETRON (ZOFRAN ODT) 4 MG ODT TAB Take 1 tablet (4 mg) by mouth every 8 hours as needed for nausea. Scribe Disclosure: I, Bandar Szymanski, am serving as a scribe at 11:02 AM on 11/15/2024 to document services personally performed by Ankit Bailey MD based on my observations and the provider's statements to me. Ankit Bailey MD 11/15/24 1556 ENT * Digna Nichols RN - 11/15/2024 10:57 AM CST Bed: ED06 Expected date: Expected time: Means of arrival: Comments: Court 525 ENT documented in this encounter Plan of Treatment Not on file documented as of this encounter Procedures Procedure Name Priority Date/Time Associated Diagnosis Comments ROUTINE UA WITH MICROSCOPIC STAT 11/15/2024 1:43 PM STUDENT CBC WITH PLATELETS AND DIFFERENTIAL STAT 11/15/2024 11:49 AM STUDENT INFLUENZA A/B, RSV AND SARS-COV2 PCR STAT 11/15/2024 11:49 AM STUDENT CBC WITH PLATELETS & DIFFERENTIAL STAT 11/15/2024 11:49 AM STUDENT LIPASE STAT 11/15/2024 11:49 AM STUDENT HEPATIC FUNCTION PANEL STAT 11/15/2024 11:49 AM STUDENT HCG QUALITATIVE STAT 11/15/2024 11:49 AM STUDENT ETHYL ALCOHOL LEVEL STAT 11/15/2024 1 1:49 AM STUDENT BASIC METABOLIC PANEL STAT 11/15/2024 11:49 AM STUDENT EKG 12-LEAD, TRACING ONLY STAT 11/15/2024 11:31 AM STUDENT documented in this encounter Results * (ABNORMAL) UA with Microscopic (11/15/2024 1:43 PM STUDENT) Color Urine Straw Colorless, Straw, Light Yellow, Yellow 11/15/2024 2:07 PM STUDENT LABORATORY Appearance Urine Clear Clear 11/15/19 25 2:07 PM STUDENT LABORATORY Glucose Urine 100(A) Negative mg/dL 11/15/2024 2:07 PM STUDENT LABORATORY Bilirubin Urine Negative Negative 2:07 PM STUDENT LABORATORY Ketones Urine 40(A) Negative mg/dL 11/15/2024 2:07 PM STUDENT LABORATORY Specific [place] Urine 1.017 1.003 - 1.035 11/15/2024 2:07 PM STUDENT LABORATORY Blood Urine Negative Negative 11/15/2024 2:07 PM STUDENT LABORATORY pH Urine 7.0 5.0 - 7.0 11/15/2024 2:07 PM STUDENT LABORATORY Protein Albumin Urine Negative Negative mg/dL 11/15/2024 2:07 PM STUDENT LABORATORY Urobilinogen Urine Normal Normal, 2.0 mg/dL 11/15/2024 2:07 PM STUDENT LABORATORY Nitrite Urine Negative Negative 11/15/2024 2:07 PM STUDENT LABORATORY Leukocyte Esterase Urine Negative Negative 11/15/2024 2:07 PM STUDENT RH LABORATORY Mucus Urine Present(A) None Seen /LPF 11/15/2024 2:07 PM STUDENT [facility] LAB[facility] RBC Urine 1 <=2 /HPF 11/15/2024 2:07 PM STUDENT [facility] WBC Urine <1 <=5 /HPF 11/15/2024 2:07 PM STUDENT [facility] LAB[facility] Squamous Epithelials Urine 1 <=1 /HPF 11/15/2024 2:07 PM STUDENT RH LABORAT[facility] Urine MID-STREAM URINE SPECIMEN / Unknown Non-blood Collection / Unknown 11/15/2024 1:43 PM STUDENT 11/15/2024 1:52 PM STUDENT us Ankit Bailey MD LAB - URINE ORDERABLES Final Result RH LABORATORY [facility] [address] [facility] Lab (1st floor, no room number) [place] [address], [facility] * (ABNORMAL) CBC with platelets and differential (11/15/2024 11:49 AM STUDENT) WBC Count 15.6(H) 4.0 - 11.0 10e3/uL 11/15/2024 12:32 PM STUDENT [facility] LABORAT[facility] RBC Count 4.44 3.80 - 5.20 10e6/uL 11/15/2024 12:32 PM STUDENT [facility] Hemoglobin 13.8 11.7 - 15.7 g/dL 11/15/2024 12:32 PM STUDENT [facility] LAB[facility] Hematocrit 41.7 35.0 - 47.0 % 11/15/2024 12:32 PM STUDENT [facility] MCV 94 78 - 100 fL 11/15/2024 12:32 PM STUDENT [facility] MCH 31.1 26.5 - 33.0 pg 11/15/2024 12:32 PM STUDENT [facility] LAB[facility] MCHC 33.1 31.5 - 36.5 g/dL 11/15/2024 12:32 PM STUDENT [facility] LAB[facility] RDW 12.6 10.0 - 15.0 % 11/15/2024 12:32 PM STUDENT [facility] Platelet Count 330 150 - 450 10e3/uL 11/15/2024 12:32 PM STUDENT RH LAB[facility]AT[facility] % Neutrophils 64 % 11/15/2024 12:32 PM STUDENT RH LAB[facility] % Lymphocytes 28 % 11/15/2024 12:32 PM STUDENT [facility] LAB[facility] % Monocytes 6 % 11/15/2024 12:32 PM STUDENT [facility] LAB[facility] % Eosinophils 0 % 11/15/2024 12:32 PM STUDENT RH LAB[facility] % Basophils 0 % 11/15/2024 12:32 PM STUDENT RH LAB[facility] % Immature Granulocytes 1 % 11/15/2024 12:32 PM STUDENT RH LABORATORY NRBCs per 100 WBC 0 <1 /100 025 12:32 PM STUDENT [facility] LAB[facility]AT[facility] Absolute Neutrophils 10.0(H) 1.6 - 8.3 10e3/uL 11/15/2024 12:32 PM STUDENT [facility] Absolute Lymphocytes 4.3 0.8 - 5.3 10e3/uL 11/15/2024 12:32 PM STUDENT [facility] Absolute Monocytes 1.0 0.0 - 1.3 10e3/uL 11/15/2024 12:32 PM STUDENT [facility] Absolute Eosinophils 0.1 0.0 - 0.7 10e3/uL 11/15/2024 12:32 PM STUDENT [facility] LAB[facility] Absolute Basophils 0.1 0.0 - 0.2 10e3/uL 11/15/2024 12:32 PM STUDENT RH LAB[facility]AT[facility] Absolute Immature Granulocytes 0.2 <=0.4 10e3/uL 11/15/2024 12:32 PM STUDENT RH LAB[facility]AT[facility] Absolute NRBCs 0.0 10e3/uL 11/15/2024 12:32 PM STUDENT [facility] LAB[facility] Blood BLOOD SPECIMEN / Unknown Venipuncture / Unknown 11/15/2024 11:49 AM STUDENT 11/15/2024 12:24 PM STUDENT us Ankit Bailey MD LAB - BLOOD ORDERABLES Final Result RH LABORATORY [facility] [address] [facility] Lab (1st floor, no room number) [place] [address], [facility] * Influenza A/B, RSV and SARS-CoV2 PCR (COVID-19) Nasopharyngeal (11/15/2024 11:49 AM STUDENT) [facility] Influenza A PCR Negative Negative 11/15/2024 1:41 PM STUDENT RH LABORATORY Influenza B PCR Negative Negative 11/15/2024 1:41 PM STUDENT [facility] RSV PCR Negative Negative 11/15/2024 1:41 PM STUDENT [facility] LAB[facility] SARS CoV2 PCR Negative Negative 11/15/2024 1:41 PM STUDENT [facility] LAB[facility]ATORY Comment:NEGATIVE: SARS-CoV-2 (COVID-19) RNA not detected, presumed negative. Swab NASOPHARYNGEAL STRUCTURE / Unknown Non-blood Collection / Unknown 11/15/2024 11:49 AM STUDENT 11/15/2024 12:24 PM STUDENT Narrative RH LABORATORY - 11/15/2024 1:41 PM STUDENT Testing was performed using the Xpert Xpress CoV2/Flu/RSV Assay on the [employer] Instrument. This test should be ordered for [...] management. This test was validated by the [facility] [employer]. These laboratories are certified under the Clinical Laboratory Improvement Amendments of 1988 (CLIA-88) as qualified to perfom high complexity laboratory testing. Ankit Bailey MD LAB - MICRO GENERAL ORD ERABLES Final Result LABORATORY [facility] [address] [facility] Lab (1st floor, no room number) [place] [address], [facility] * Alcohol level blood (11/15/2024 11:49 AM STUDENT) Alcohol ethyl <0.01 <=0.01 g/dL 11/15/2024 12:54 PM STUDENT LABORATORY Blood BLOOD SPECIMEN / Unknown Venipuncture / Unknown 11/15/2024 11:49 AM STUDENT 11/15/2024 12:24 PM STUDENT Ankit Bailey MD LAB - BLOOD ORDERABLES Final Result Performing Organization Address [facility]/ZIP Co de Phone Number [facility] [address] Lab (1st floor, no room number) [place] [phone] [place] [address] * HCG QUALitative (blood) (11/15/2024 11:49 AM STUDENT) [facility] hCG Serum Qualitative Negative Negative KENA 11/15/2024 12:59 PM STUDENT LABORATORY Comment:This test is for scr eening purposes. Results should be interpreted along with the clinical picture. Confirmation testing is available if warranted by ordering [id number], HCG Quantitative . Blood BLOOD SPECIMEN / Unknown Venipuncture / Unknown 11/15/2024 11:49 AM STUDENT 11/15/2024 12:24 PM STUDENT Ankit Bailey MD LAB - BLOOD ORDERABLES Final Result Performing Organization Address [facility] Co de Phone Number [facility] Lab [address] Lab (1st floor, no room number) [place] [address] * Lipase (11/15/2024 11:49 AM STUDENT) [facility] Lipase 14 13 - 60 U/L 11/15/2024 12:54 PM STUDENT LABORATORY Blood BLOOD SPECIMEN / Unknown Venipuncture / Unknown 11/15/2024 11:49 AM STUDENT 11/15/2024 12:24 PM STUDENT Ankit Bailey MD LAB - BLOOD ORDERABLES Final Result Performing Organization Address City/[facility]/ZIP Co de Phone Number [facility] Lab [address] Lab (1st floor, no room number) [place] [phone] [place] [address] * Hepatic function panel (11/15/2024 11:49 AM STUDENT) [facility] Protein Total 6.9 6.4 - 8.3 g/dL 11/15/2024 12:54 PM STUDENT RH LABORATORY Albumin 4.3 3.5 - 5.2 g/dL 11/15/2024 12:54 PM [facility] Bilirubin Total 0.2 <=1.2 mg/dL 11/15/2024 12:54 PM [facility] Alkaline Phosphatase 57 40 - 150 U/L 11/15/2024 12:54 PM [facility] AST 18 0 - 45 U/L 11/15/2024 12:54 PM [facility] ALT 21 0 - 50 U/L 11/15/2024 12:54 PM [facility] Bilirubin Direct <0.20 0.00 - 0.30 mg/dL 11/15/2024 12:54 PM [facility] Blood BLOOD SPECIMEN / Unknown Venipuncture / Unknown 11/15/2024 11:49 AM STUDENT 11/15/2024 12:24 PM [facility] us Ankit Bailey MD LAB - BLOOD ORDERABLES Final Result LABORATORY [facility] [address] Lab (1st floor, no room number) [place] [address] * (ABNORMAL) Basic metabolic panel (11/15/2024 11:49 AM STUDENT) Sodium 137 135 - 145 mmol/L 11/15/2024 12:54 PM [facility] Potassium 3.6 3.4 - 5.3 mmol/L 11/15/2024 12:54 PM [facility] Chloride 103 98 - 107 mmol/L 11/15/2024 12:54 PM [facility] Carbon Dioxide (CO2) 22 22 - 29 mmol/L 11/15/2024 12:54 PM [facility] Anion Gap 12 7 - 15 mmol/L 11/15/2024 12:54 PM [facility] Urea Nitrogen 10.2 6.0 - 20.0 mg/dL 11/15/2024 12:54 PM [facility] Creatinine 0.84 0.51 - 0.95 mg/dL 11/15/2024 12:54 PM [facility] GFR Estimate >90 >60 mL/min/1.7 3m2 11/15/2024 12:54 PM STUDENT RH LABORATORY Comment:eGFR calculated 2020 CKD-EPI equation. Calcium 8.9 8.8 - 10.4 mg/dL 11/15/2024 12:54 PM STUDENT LABORATORY Glucose 150(H) 70 - 99 mg/dL 11/15/2024 12:54 PM STUDENT LABORATORY Blood BLOOD SPECIMEN / Unknown Venipuncture / Unknown 11/15/2024 11:49 AM STUDENT 11/15/2024 12:24 PM STUDENT Ankit Bailey MD LAB - BLOOD ORDERABLES Final Result RH LABORATORY [facility] [address] Lab (1st floor, no room number) [place] [address] * EKG 12 lead (11/15/2024 11:31 AM STUDENT) Systolic Blood Pressure mmHg RADIOLOGY RESULTS Diastolic Blood Pressure mmHg RADIOLOGY RESULTS Ventricular Rate 80 BPM RAD IOLOGY RESULTS Atrial Rate 80 BPM RADIOLOG Y RESULTS NY Interval 144 ms RADIOLOG Y RESULTS QRS Duration 82 ms RADIOLO GY RESULTS QT 414 ms RADIOLOGY RESULTS QTc 477 ms RADIOLOGY RESULTS P [place] 48 degrees RADIOLOGY RESULTS R AXIS 58 degrees RADIOLOGY RESULTS T [place] 48 degrees RADIOLOGY RESULTS Interpretation ECG Sinus rhythm Normal ECG No previous ECGs available Unconfirmed report - interpretation of this ECG is computer generated - see medical record for final interpretation Confirmed by - EMERGENCY ROOM, PHYSICIAN ([id number]), medical editor TATA CRUZ ([id number]) on 11/15/2024 2:28:14 PM RADIOLOGY RESULTS 11/15/2024 11:3 1 AM STUDENT 11/15/2024 2:28 PM STUDENT Ankit Bailey MD ECG ORDERABLES Edited Result - Final RADIOLOGY RESULTS documented in this encounter Visit Diagnoses Diagnosis Nausea and vomiting, unspecified vomiting type Nonspecific abdominal pain Anxiety Anxiety state, unspecified documented in this encounter Administered Medications Inactive Administered Medications - up to 3 most recent administrations Medication Order MAR Action Action Date Dose Rate Site diphenhydrAMINE (BENADRYL) injection 25 mg 25 mg, Intravenous, ONCE, On [place] 11/15/24 at 1325, For 1 dose $Given 11/15/2024 1:48 PM STUDENT 25 mg haloperidol lactate (HALDOL) injection 2.5 mg 2.5 mg, Intravenous, ONCE, Administer over 1 Minutes, On [place] 11/15/24 at 1325, For 1 dose $Given 11/15/2024 1:48 PM STUDENT 2.5 mg ketorolac (TORADOL) injection 15 mg 15 mg, Intravenous, ONCE, On [place] 11/15/24 at 1115, For 1 dose, Can cause pain on injection. If ordered intravenously (IV) : administer through a running maintenance fluid over 1 minute followed by a flush. If patient complains of pain on injection, may dilute 15-30 mg in 5 mL and push over 1 to 2 minutes. $Given 11/15/2024 11:44 AM STUDENT 15 mg lactated ringers BOLUS 1,000 mL Intravenous, 1,000 mL, ONCE, at 1,000 mL/hr, Administer over 1 Hours, On [facility] 11/15/24 at 1115, For 1 dose $New Bag 11/15/2024 11:45 AM STUDENT 1,000 mLs 1000 mL/hr lactated ringers BOLUS 1,000 mL Intravenous, 1,000 mL, ONCE, at 1,000 mL/hr, Administer over 1 Hours, On [facility] 11/15/24 at 1325, For 1 dose $New Bag 11/15/2024 1:48 PM STUDENT 1,000 mLs 1000 mL/hr ondansetron (ZOFRAN ODT) ODT tab 4 mg 4 mg, Oral, ONCE, On [facility] 11/15/24 at 1735, For 1 dose, With dry hands, peel back foil backing and gently remove tablet. Do not push oral disintegrating tablet through foil backing. Administer immediately on tongue and oral disintegrating tablet dissolves in seconds, then swallow with saliva. Liquid not required. $Given 11/15/2024 5:40 PM STUDENT 4 mg ondansetron (ZOFRAN) injection 4 mg 4 mg, Intravenous, ONCE, Administer over 2-5 Minutes, On [place] 11/15/24 at 1115, For 1 dose $Given 11/15/2024 11:44 AM STUDENT 4 mg ondansetron (ZOFRAN) injection 4 mg 4 mg, Intravenous, ONCE, Administer over 2-5 Minutes, On [place] 11/15/24 at 1255, For 1 dose $Given 11/15/2024 12:52 PM STUDENT 4 mg documented in this encounter Active and Recently Administered Medications Times are shown in STUDENT. Scheduled Medication Order 11/13/2024 11/14/2024 11/15/2024 diphenhydrAMINE (BENADRYL) injection 25 mg (COMPLETED) 25 mg, Intravenous, ONCE, On [place] 11/15/24 at 1325, For 1 dose 1348 ($Given - Provi olivier: Narda Griffith RN) haloperidol lactate (HALDOL) injection 2.5 mg (COMPLETED) 2.5 mg, Intravenous, ONCE, Administer over 1 Minutes, On [place] 11/15/24 at 1325, For 1 dose 1348 ($Given - Provi olivier: Narda Griffith RN) ketorolac (TORADOL) injection 15 mg (COMPLETED) 15 mg, Intravenous, ONCE, On [place] 11/15/24 at 1115, For 1 dose, Can cause pain on injection. If ordered intravenously (IV) : administer through a running maintenance fluid over 1 minute followed by a flush. If patient complains of pain on injection, may dilute 15-30 mg in 5 mL and push over 1 to 2 minutes. 1144 ($Given - Provi olivier: Narda Griffith RN) lactated ringers BOLUS 1,000 mL (COMPLETED) Intravenous, 1,000 mL, ONCE, at 1,000 mL/hr, Administer over 1 Hours, On Crystal 11/15/24 at 1115, For 1 dose 1145 ($New Bag - Pro vider: Narda Griffith RN)1341 (Stopped - Provider: Narda Griffith RN) lactated ringers BOLUS 1,000 mL (COMPLETED) Intravenous, 1,000 mL, ONCE, at 1,000 mL/hr, Administer over 1 Hours, On [place] 11/15/24 at 1325, For 1 dose 1348 ($New Bag - Pro vider: Narda Griffith RN)1722 (Stopped - Provider: Michelle Rose RN) ondansetron (ZOFRAN ODT) ODT tab 4 mg (COMPLETED) 4 mg, Oral, ONCE, On Crystal 11/15/24 at 1735, For 1 dose, With dry hands, peel back foil backing and gently remove tablet. Do not push oral disintegrating tablet through foil backing. Administer immediately on tongue and oral disintegrating tablet dissolves in seconds, then swallow with saliva. Liquid not required. 1740 ($Given - Provi olivier: Michelle Rose, OLEGARIO) ondansetron (ZOFRAN) injection 4 mg (COMPLETED) 4 mg, Intravenous, ONCE, Administer over 2-5 Minutes, On Crystal 11/15/24 at 1115, For 1 dose 1144 ($Given - Provi olivier: Narda Griffith, OLEGARIO) ondansetron (ZOFRAN) injection 4 mg (COMPLETED) 4 mg, Intravenous, ONCE, Administer over 2-5 Minutes, On Crystal 11/15/24 at 1255, For 1 dose 1252 ($Given - Provi olivier: Narda Griffith, OLEGARIO) documented in this encounter Additional Health Concerns Infection Onset Date Last Indicated Resolved Time Rule Out COVID-19 11/15/2024 11/15/2024 11/15/2024 1:41 PM STUDENT Assessment Noted Time PHQ-9 Depression Total Score: 10 024 10:15 AM CDT documented as of this encounter Care Teams Telephone Technician Relationship Specialty Start Date End Date No Ref-Primary, Physician PCP - General 07/04/19 documented as of this encounter
--- OUTSIDE RECORDS SUMMARY | 2024-12-11 18:33 | XMS_ITS | Encounter Summary ---
Author Organization [place] Address [facility] [place] [address] Care Team Providers Care Railroad Car Repair Supervisor Name Role Phone No Ref-Primary, Physician Primary Care Provider Encounter Details Date Type Department Care Team (Late st Contact Info) Description 06/15/2024 [facility] Advice [facility] Mental Health & Addiction Services [facility] [address] [place] [address] Jazmin Conway, EMBEDDED SOFTWARE ARCHITECT Social History Tobacco Use Types Packs/Day Years Used Date Smoking Tobacco: Never Smokeless Tobacco: Never Alcohol Use Standard Drinks/Week Comments Not Currently 0 (1 standard drink = 0.6 oz pur e alcohol) stopped for PHQ-2 Answer Date Recorded PHQ-2 Score 2 06/07/2024 [place] Depression Scale Answer Date Recorded Last EPDS [...] on file documented as of this encounter Plan of Treatment Not on file documented as of this encounter Visit Diagnoses Not on filedocumented in this encounter Additional Health Concerns Infection Onset Date Last Indicated Resolved Time Rule Out COVID-19 11/15/2024 11/15/2024 11/15/2024 1:41 PM WAREHOUSE ASSOCIATE Assessment Noted Time PHQ-9 Depression Total Score: 10 024 10:15 AM CDT documented as of this encounter Care Teams Railroad Car Repair Supervisor Relationship Specialty Start Date End Date No Ref-Primary, Physician PCP - General 07/04/19 documented as of this encounter
--- OUTSIDE RECORDS SUMMARY | 2024-12-11 18:33 | XMS_ITS | Encounter Summary ---
Author Organization [place] Address [facility]. [address] Care Team Providers Care Banquet Steward Name Role Phone No Ref-Primary, Physician Primary Care Provider Encounter Details Date Type Department Care Team (Late st Contact Info) Description 05/30/2024 [facility] Treatment Plan [facility] Mental Health & Addiction Services [facility] [address] [phone] Jazmin Conway, BIOPSYCHOLOGIST Social History Tobacco Use Types Packs/Day Years Used Date Smoking Tobacco: Never Smokeless Tobacco: Never Alcohol Use Standard Drinks/Week Comments Not Currently 0 (1 standard drink = 0.6 oz pur e alcohol) stopped for PHQ-2 Answer Date Recorded PHQ-2 Score 3 05/21/2024 [place] Depression Scale Answer Date Recorded Last EPDS [...] on file documented as of this encounter Progress Notes * Justus Pelayo MD - 05/30/2024 8:16 AM CDT Intensive Outpatient Program Physician Certification of Medical Necessity Patient Name: Gifty Marquez Patient Preferred Name: Dena Patient : 2005 Patient Attending physician: Justus Pelayo MD Admission Certification: I certify the above-named patient would require partial hospitalization care if intensive outpatient services were not provided and that the patient requires such IOP services for a minimum of 9 hours per week. These services are provided under the care and supervision of a physician and under an individualized plan of treatment that is established and periodically reviewed by a physician in consultation with appropriate staff participating in the program. From admission date: 06/04/2024 to 60 day: 08/02/2024 Justus Pelayo MD on 06/04/2024 at 12:09 PM * Jazmin Conway, [facility] - 05/30/2024 8:16 AM CDT Individualized Treatment Plan Patient's Name: Gifty Marquez Preferred Name: Dena Pronouns: She/Her : 2005 Program Admission Date: 06/04/2024 Estimated Program Discharge Date: 06/14/2024; Patient starting school next week, unable to commit toprogramming at this time. Date of Initial Treatment Plan: 06/04/2024 Chief Concern: I am in this program because: I was being veyr manic and making a lot of bad choices and ended up in the EMPATH unit because of the choices I was making and I did not enjoy that at all. Assisted Goal: To prevent that from ever happening again, and to just maybe relearn some coping skills and figure out why I do the things I do and how to understand myself better. Goal Areas: GOAL AREA 1: Personal Safety Goal Status: Stopped Description: Suicidal ideation: Low Self-injury urges: Low Last acted on self-injury: Two weeks ago. I used to do it a lot when I was [age] too. I don't know if it was for attention or if it is how I am feeling. Skills that help me cope with self-injury: I definitely like to talk it. I usually self-harm when I am in conflict with someone. While in program I would like to accomplish: Identifying coping skills and trying them out. I will know I am making progress when: I am no longer using self-harm to get attention or cope with my conflicts. I think I will be ready to discharge from the program when: I am intentionally using effective coping skills. SMART goals/tasks: 06/04/2024: To be able to identify two new coping skills to try and put into practice one a day. Progress updates: GOAL AREA 2: Symptom Management Goal Status: Stopped Description: impulsivity, emotion instability, unhelpful or intrusive thoughts, lack of interest or pleasure in activities, negative self-talk, difficulty with sleep, and low motivation While in program I would like to accomplish: I just want to be able to think before I act or do something or speak, because I don't do that often right now. My impulsivity makes me do a lot of things. I will know I am making progress when: When I am not starting fights in the morning right when I wake up. I think I will be ready to discharge from the program when: I am starting now and not starting conflict. SMART goals/tasks 06/04/2024: Do my full morning routine, and journal and check-in with myself by asking, how am I feeling, before interacting with him. Progress updates: GOAL AREA 5: Aftercare Plan Goal Status: Stopped Description: return to individual therapy, Connect with disability services on campus After program is completed I will: I will know I am making progress when: I think I will be ready to discharge from the program when: SMART goals/tasks: Progress updates: 06/14/24: Patient committed to scheduling an appointment with their therapist and connecting with disability services on campus. My Strengths: caring, empathetic, insightful, and motivated Ways I can use these to further my goals: My Limitations or Vulnerabilities: How I might need to modify my plans to account for my limits: My Other Health Issues: None reported Supports: I want to include the following support people in my treatment: Just my social work case manager and my foster mom. Please note we cannot share information with anyone unless you sign a release of information. You can specify what information can and cannot be shared and you can retract that written permission at any time. Staff and support people can help me by: By just checking in. Cultural Values and Needs: Mom of one young child. Assessments: The following assessments were completed by patient for this visit: PHQ9: 05/21/2024 10:00 AM 06/07/2024 10:14 AM PHQ-9 SCORE PHQ-9 Total Score 14 10 GAD7: 05/21/2024 10:00 AM 06/07/2024 10:14 AM LANA-7 SCORE Total Score 13 14 CAGE-AID: 05/21/2024 10:00 AM CAGE-AID Total Score Total Score 0 PROMIS 10-Global Health (only subscores and total score): 05/21/2024 10:00 AM 06/07/2024 10:14 AM PROMIS-10 Scores Only Global Mental Health Score 9 9 Global Physical Health Score 15 17 PROMIS TOTAL - SUBSCORES 24 26 Diagnosis/es: 296.40 Bipolar I Disorder Current or Most Recent Episode Hypomanic. 296.32 (F33.1) Major Depressive Disorder, Recurrent Episode, Moderate and With anxious distress 300.02 (F41.1) Generalized Anxiety Disorder. Level of Care: Adult Mental Health Partial Hospitalization Program Program Track: IOP/DT 1 YA Multidisciplinary Team Members: Team IOP DT 1: Justus Pelayo MD; Jazmin Conway [facility]; Ivory Lundberg [facility]; Olga Lidia Siddiqui, OTR/L; Digna Goncalves RN Program services: Group and Individual Psychotherapy (at least 1 hour per day), Patient Education and Training Related to Treatment (at least one hour per day), Occupational Therapy and/or Nurse Liaison Education and Support (at least one hour per day), Psychiatric Evaluation and Management (at intake and least once per month) Staff Interventions: Assist to identify treatment goals, including identifying and problem-solving barriers. Assist in identifying strengths and how to mobilize them in meeting treatment goals. Assist in identifying limitations and other health concerns, and ways to manage those in the recovery process and beyond. Assist in identifying and helping to establish, maintain, and strengthen support network. Assist with and facilitate discharge planning, including connection with available and appropriate community services. Ongoing psychotherapeutic and multidisciplinary assessment. Regular meetings with psychiatrist or other independent psychiatric provider. Assessment by registered nurse liaisons at admission and ongoing/as needed. Complete OT assessment where applicable/as needed. Complete functional assessment(s) where applicable/as needed. Plan for and help with maintaining safety, including revising and updating written safety plan where applicable. Assist in identifying and applying coping skills. Assist in identifying and problem solving barriers to treatment and clinical progress. Utilize motivational interviewing techniques to promote change. Provide education to promote informed decisions and decision-making. Utilize motivational interviewing techniques to promote change. Provide education regarding how to effectively use group process. Teach skills to help identify andmanage thoughts, behaviors, and emotions, with specific skills/topics including: emotional regulation, identification of values, understanding and modifying distorted thinking, understanding and coping with grief and loss, shame, self-compassion, self-awareness, mindfulness, radical acceptance, distress tolerance skills, hope, problem-solving, communication, interpersonal effectiveness, distress tolerance. Facilitate increased self-awareness. Provide education regarding: life balance/structure/routine, goal setting and integration, prioritizing and planning, leisure values, behavior activation, motivation, energy management, stress management, neuroscience of change, sensory modulation, window of tolerance, ANS and vagus nerve activation, sensory enhanced mindfulness, sensory/body based grounding skills. Provide education regarding: eight dimensions of wellness, sleep hygiene, medication education and management, stigma, nutrition, signs and symptoms, community resources, support network education. Abuse Prevention Plan: Treatment team will provide education regarding skill development to address symptom management, life skills, wellness, discharge planning, and personal safety. Collaborate with patients internal and external providers to coordinate care. Treatment will be provided in a safe, therapeutic environment. Program provider will offer medication adjustment/management as needed/indicated. Patient Participation in Plan: This plan was developed by the patient named at the top of the document with assistance from the multidisciplinary care team. The patient agrees with this care plan, developed goals, and has receiveda copy. Supports and/or family have been invited to participate in the creation of this plan at thediscretion of the patient. Discharge Criteria: Patient will discharge from the program when the goals above have been met, the patient is otherwise deemed to no longer need and/or benefit from the program/this level of care, another treatment modality is identified that would better meet treatment needs and goals, and/or the patient opts to discharge from the program for any reason. Acknowledgement of Current Treatment Plan I have reviewed my treatment plan with my treatment team members. I agree with the plan as it is written in the electronic health record. Name: Signature: Date: Gifty Pelayo MD Psychiatrist/Food Service Attendant NOTE: Patient signatures are completed manually and scanned into the electronic medical record. SeeMedia tab in Hubskip. * Jazmin Conway LICSW - 05/30/2024 8:16 AM CDT Outpatient Mental Health Program Discharge Summary / Instructions - Adult PATIENT'S NAME: Gifty Marquez : 2005 PROGRAM PARTICIPATION: Adult Day Treatment (ADT) Track: IOPDT 1 (YA) ADMISSION DATE: 06/04/24 DISCHARGE DATE: 06/14/2024 Reason for Discharge: Incomplete treatment: patient was discharged as a result of: Starting school next week; unable to attend programming patient decision to discontinue treatment program prior to completion. Diagnosis: 296.40 Bipolar I Disorder Current or Most Recent Episode Hypomanic. 296.32 (F33.1) Major Depressive Disorder, Recurrent Episode, Moderate _ and With anxious distress 300.02 (F41.1) Generalized Anxiety Disorder. Medications: (include name, dose, and frequency) SEE [facility] DISCHARGE PLAN / RECOMMENDATIONS TO MANAGE SYMPTOMS AND PREVENT RELAPSE: Follow up with your providers and appointments. Next Level of Care / Frequency: individual therapy at clinic with provider. Next appointment: Patient committed to scheduling Follow up with the following resources and/or community supports: Disability Services at [facility] Report symptoms and significant changes to your care team: including any safety concerns, thoughts of suicide or homicide, changes in sleep, increased confusion, mood getting worse, feeling more aggressive or functioning declines Use coping skills: Distress tolerance strategies: STOP, pros and cons, TIPP, self soothe, distract,accept; Emotion Regulation strategies: Check facts, opposite action, cope ahead, build mastery; Mindfulness strategies: Observe, describe, nonjudgmentally, mindfulness of thought and emotion; Interpersonal strategies: SHERRI, GIVE, FAST PERSONAL SAFETY / CRISIS MANAGEMENT: Follow your individualized Safety Coping Plan. Report increased symptoms and safety concerns to your care team. Call 911 or go to your nearest emergency department. Use the crisis resources listed below: Crisis Resources: Suicide Prevention Lifeline: 2-676-865-VGMA (0063) Crisis Text Line Service (available 24 hours a day, 7 days a week): Text [place] to 939471 Call CRISIS (786318) from a cell phone to talk to a team of professionals who can help you. Crisis Services By County: Phone Number: [place] [phone] [place] [phone] [place] (COPE) [phone] [place] [phone] [place] [phone] (after hours) Moustapha [phone] [place] [phone] The above discharge plan and recommendations were created to help you manage your mental health andto improve your overall functioning and well-being. Not following the above recommendations may result in an increase of symptoms, potential safety risks and a need for increased services. We appreciate the opportunity to work with you and sincerely thank you for choosing [facility]. Your treatment team: Justus Pelayo MD; MIREYA Stephens; MIREYA Parker; OLEGARIO Lyn; Olga Lidia Siddiqui OT Patient Signature: Date: documented in this encounter Plan of Treatment Not on file documented as of this encounter Visit Diagnoses Not on filedocumented in this encounter Additional Health Concerns Infection Onset Date Last Indicated Resolved Time Rule Out COVID-19 11/15/2024 11/15/2024 11/15/2024 1:41 PM SUPERVISOR RICE MILLING Assessment Noted Time PHQ-9 Depression Total Score: 14 024 10:35 AM CDT documented as of this encounter Care Teams Banquet Steward Relationship Specialty Start Date End Date No Ref-Primary, Physician PCP - General 07/04/19 documented as of this encounter
--- OUTSIDE RECORDS SUMMARY | 2024-12-11 18:33 | XMS_ITS | Encounter Summary ---
Author Organization [place] Address [address] [place] [address]. [place] [address] Care Team Providers Care Air Intercept Controller Supervisor Name Role Phone No Ref-Primary, Physician Primary Care Provider Encounter Details Date Type Department Care Team (Latest Contact Info) Description 11/15/2024 Travel Social History Tobacco Use Types Packs/Day Years Used Date Smoking Tobacco: Never Smokeless Tobacco: Never Alcohol Use Standard Drinks/Week Comments Not Currently 0 (1 standard drink = 0.6 oz pur e alcohol) stopped for PHQ-2 Answer Date Recorded PHQ-2 Score 2 06/07/2024 [place] Depression Scale Answer Date Recorded Last EPDS [...] Out COVID-19 11/15/2024 11/15/2024 11/15/2024 1:41 PM DIRECTOR PRODUCT Assessment Noted Time PHQ-9 Depression Total Score: 10 024 10:15 AM CDT documented as of this encounter Care Teams Air Intercept Controller Supervisor Relationship Specialty Start Date End Date No Ref-Primary, Physician PCP - General 07/04/19 documented as of this encounter
--- OUTSIDE RECORDS SUMMARY | 2024-12-11 18:33 | XMS_ITS | Encounter Summary ---
Author Organization [place] Address [address] [place] [address]. [place] [address] Care Team Providers Care Log Driver Name Role Phone No Ref-Primary, Physician Primary Care Provider Encounter Details Date Type Department Care Team (Late st Contact Info) Description 05/29/2024 [facility] Medical Advice [facility] - Behavioral Service Line [address] [place] [phone] Cate Jackson Social History Tobacco Use Types Packs/Day Years Used Date Smoking Tobacco: Never Smokeless Tobacco: Never Alcohol Use Standard Drinks/Week Comments Not Currently 0 (1 standard drink = 0.6 oz pur e alcohol) stopped for PHQ-2 Answer Date Recorded PHQ-2 Score 3 05/21/2024 [place] Depression Scale Answer Date Recorded Last EPDS [...] Out COVID-19 11/15/2024 11/15/2024 11/15/2024 1:41 PM SEMICONDUCTOR PROCESSOR Assessment Noted Time PHQ-9 Depression Total Score: 14 024 10:35 AM CDT documented as of this encounter Care Teams Log Driver Relationship Specialty Start Date End Date No Ref-Primary, Physician PCP - General 07/04/19 documented as of this encounter
--- OUTSIDE RECORDS SUMMARY | 2024-12-11 18:33 | XMS_ITS | Encounter Summary ---
Author Organization [place] Address [facility] [place] [address] Care Team Providers Care Senior Tax Manager Name Role Phone No Ref-Primary, Physician Primary Care Provider Reason for Visit * Reason Onset Date Comments Outpatient 07/04/2019 Encounter Details Date Type Department Care Team ([facility] Contact Info) Description 07/04/[address] [facility] Behavioral Health Intake [address] [place] [phone] Generic, Behavioral Intake, Outpatient Social History Tobacco Use Types Packs/Day Years Used Date Smoking Tobacco: Never Assessed Comments Unknown Sex and Gender Information Value Date Recorded Sex Assigned at Not on file Legal Sex Female 1:51 PM CDT Gender Identity Not on file Sexual Orientation Not on file documented as of this encounter Miscellaneous Notes * Telephone Encounter - Juliette Bhakta - 07/13/2019 4:58 PM CDT Intake left voicemail for Beth Nunez ([phone]) @ [facility] to request she contact [facility] and ask them to fax Rule 25 Assessment to Intake, as requested by FRANK Kwok/Sam Jane. Intake provided dept fax and callback number. * Telephone Encounter - Liseth Leslie - 07/13/2019 10:23 AM CDT ----- Message from FRANK Kwok sent at 07/13/2019 9:39 AM CDT ----- Regarding: RE: Adol Referral There is not enough recent information to make decision regarding admission to DUAL IOP [facility] [place]> The DA and updated DA is are out of date. There is no information related to chemical use n the information that was sent over, The client may not be appropriate to be in a Dual Program andmay be more appropriate for a MH program. It would be helpful to have the Rule 25 that [facility] did. This client may benefit from having a Dual Diagnosis Assessment to better understand current mentalhealth, chemical health, dynamics in the home, motivation, safety, ect. Govind ----- Message ----- From: Juliette Bhakta Sent: 07/12/2019 11:57 AM CDT To: [facility] [place] Subject: Adol Referral Rec'd fax from Ayana Delatorre ([phone]) @ [facility] via Raven Nunez ([phone]) @ [facility] of Individual Trmt Plan, Diagnostic Addendum, and SHARRI. Per previous intake note, pt is being referred to [place] [facility]. ?? Referral has already been created. ?? Faxed to program and sent mssg via pool ?? Filed ?? Cycle of drinking probably a month or two. Hard to tell - she just got caught and admitted to using for awhile. ?? Pt foster care little over a year. TPR is pending (terminating parental rights). MH depress anxiety ptsd Medications: will fax over with clinical ?? [facility] did Rule 25. No prior tx No other legal ?? Doing pretty well in school. Contact with grandparents not parents. ?? Restraining order on Dad - No contact. Be Chilel ?? Yessina will fax over clinical. [facility] * Telephone Encounter - Juliette Bhakta - 07/12/2019 12:38 PM CDT Rec'd fax from Riana (([phone]) @ [facility] via Raven Nunez ([phone])@ [facility] of Child/Adol DA. Faxed to program and sent mssg via pool. Filed with pt's other clinical. * Telephone Encounter - Juliette Bhakta - 07/12/2019 11:41 AM CDT Rec'd fax from Ayana Delatorre ([phone]) @ [facility] via Raven Nunez ([phone]) @ [facility] of Individual Trmt Plan, Diagnostic Addendum, and SHARRI. Per previous intake note, pt is being referred to [facility]. Referral has already been created. Faxed to program and sent mssg via pool Filed * Telephone Encounter - Vilma Casanova - 07/11/2019 3:17 PM CDT Received call from Rosalinda, marking room supervisor at [facility]. She is referring to [facility]. She will fax over DA and cd eval for review. * Telephone Encounter - Olivia Walls - 07/04/2019 2:03 PM CDT Cycle of drinking probably a month or two. Hard to tell - she just got caught and admitted to using for awhile. Pt foster care little over a year. TPR is pending (terminating parental rights). MH depress anxiety ptsd Medications: will fax over with clinical [facility] did Rule 25. No prior tx No other legal Doing pretty well in school. Contact with grandparents not parents. Restraining order on Dad - No contact. Be Campos will fax over clinical. rosales documented in this encounter Plan of Treatment Not on file documented as of this encounter Visit Diagnoses Not on filedocumented in this encounter Additional Health Concerns Infection Onset Date Last Indicated Resolved Time Rule Out COVID-19 12/08/2023 12/08/2023 12/09/2023 11:33 AM CARPENTER PACKING Rule Out COVID-19 11/15/2024 11/15/2024 11/15/2024 1:41 PM CARPENTER PACKING documented as of this encounter Care Teams Senior Tax Manager Relationship Specialty Start Date End Date No Ref-Primary, Physician PCP - General 07/04/19 documented as of this encounter
== END 2024-12-11 18:54 | disposition home or self-care (01) ==
PROVIDERS: Emergency Provider Emergency Medicine Emergency Medical Services
DX: R11.15 Cyclical vomiting syndrome unrelated to migraine (principal)
CPT/HCPCS: 96374; 96375; 99283; 99284; J1630; J2405; J7030

== ENCOUNTER 2024-12-13 | Emergency (ER) | payer BC, SELFPAY ==
--- OUTSIDE RECORDS SUMMARY | 2024-12-13 00:02 | XMS_ITS | Encounter Summary ---
Author Organization [place] Address [address] [place] [address]. [place] [address] Care Team Providers Care Avid Editor Name Role Phone No Ref-Primary, Physician Primary Care Provider Encounter Details Date Type Department Care Team (Late st Contact Info) Description 05/29/2024 [facility] Medical Advice [facility] - Behavioral Service Line [address] [place] [phone] Cate Jackson Social History Tobacco Use Types Packs/Day Years Used Date Smoking Tobacco: Never Smokeless Tobacco: Never Alcohol Use Standard Drinks/Week Comments Not Currently 0 (1 standard drink = 0.6 oz pur e alcohol) stopped for PHQ-2 Answer Date Recorded PHQ-2 Score 3 05/21/2024 [place] Depression Scale Answer Date Recorded Last EPDS [...] Out COVID-19 11/15/2024 11/15/2024 11/15/2024 1:41 PM DOG BOARDER Assessment Noted Time PHQ-9 Depression Total Score: 14 024 10:35 AM CDT documented as of this encounter Care Teams Avid Editor Relationship Specialty Start Date End Date No Ref-Primary, Physician PCP - General 07/04/19 documented as of this encounter
--- OUTSIDE RECORDS SUMMARY | 2024-12-13 00:02 | XMS_ITS | Encounter Summary ---
Author Organization [facility] Address [facility] [place] [address] Care Team Providers Care Cutter Grinder Name Role Phone No Ref-Primary, Physician Primary Care Provider Encounter Details Date Type Department Care Team (Late st Contact Info) Description 05/30/2024 [facility] Treatment Plan [facility] [address] [facility] [address] [place] [address] Jazmin Conway, NURSING HOME ASSISTANT ADMINISTRATOR Social History Tobacco Use Types Packs/Day Years Used Date Smoking Tobacco: Never Smokeless Tobacco: Never Alcohol Use Standard Drinks/Week Comments Not Currently 0 (1 standard drink = 0.6 oz pur e alcohol) stopped for PHQ-2 Answer Date Recorded PHQ-2 Score 3 05/21/2024 [place] Depression Scale Answer Date Recorded Last EPDS [...] 06/04/2024 at 12:09 PM * Jazmin Conway, [facility] - 05/30/2024 8:16 AM CDT Individualized Treatment [...] I did not enjoy that at all. [facility]ci Goal: To prevent that from ever happening [...] support people in my treatment: Just my older adult social work specialist and my foster mom. Please note we [...] DT 1: Justus Pelayo MD; Jazmin Conway [facility]; Ivory Lundberg [facility]; Olga Lidia Siddiqui, OTR/L; Digna Goncalves RN [...] record. Name: Signature: Date: Gifty Pelayo MD Psychiatrist/Driveway Sealer NOTE: Patient signatures are completed manually and scanned into the electronic medical record. SeeMedia tab in [place]. * Jazmin Conway LICSW - 05/30/2024 8:16 [...] Medications: (include name, dose, and frequency) SEE [facility] DISCHARGE PLAN / RECOMMENDATIONS TO MANAGE SYMPTOMS AND PREVENT RELAPSE: Follow up with your providers and appointments. Next Level of Care / Frequency: individual therapy at clinic with provider. Next appointment: Patient committed to scheduling Follow up with the following resources and/or community supports: [facility]ability [facility] at [facility] Report symptoms and significant changes to your [...] listed below: Crisis Resources: Suicide Prevention Lifeline: 7-154-628-UJFI (3436) Crisis Text Line Service (available 24 hours a day, 7 days a week): Text [place] to 881155 Call CRISIS (392929) from a cell phone to talk to a team of professionals who can help you. Crisis Services By County: Phone Number: Abdoul [phone] [place] [phone] [place] (COPE) [phone] [place] [phone] Regin[place] [phone] (after hours) Moustapha [phone] [place] [phone] The above discharge plan and recommendations were created to help you manage your mental health andto improve your overall functioning and well-being. Not following the above recommendations may result in an increase of symptoms, potential safety risks and a need for increased services. We appreciate the opportunity to work with you and sincerely thank you for choosing [facility]. Your treatment team: Justus Pelayo MD; MIREYA Stephens; MIREYA Parker; OLEGARIO Lyn; Olga Lidia Siddiqui OT Patient Signature: Date: documented in this encounter Plan of Treatment Not on file documented as of this encounter Visit Diagnoses Not on filedocumented in this encounter Additional Health Concerns Infection Onset Date Last Indicated Resolved Time Rule Out COVID-19 11/15/2024 11/15/2024 11/15/2024 1:41 PM LIBRARY MONITOR Assessment Noted Time PHQ-9 Depression Total Score: 14 024 10:35 AM CDT documented as of this encounter Care Teams Cutter Grinder Relationship Specialty Start Date End Date No Ref-Primary, Physician PCP - General 07/04/19 documented as of this encounter
--- OUTSIDE RECORDS SUMMARY | 2024-12-13 00:03 | XMS_ITS | Clinical Summary ---
Author Organization [facility] Address [address] [place] [address]. [place] [address] Care Team Providers Care Delimber Operator Name Role Phone No Ref-Primary, Physician Primary [...] Department Care Team Description 11/15/2024 10:57 AM INSPECTOR PURCHASED PARTS - 11/15/2024 5:48 PM [facility] Emergency Dept [address] [place] [address] Ankit Bailey MD Peery, Stephen, MD Nausea [...] Answer Date Recorded PHQ-2 Score 2 06/07/2024 [place] Depression Scale Answer Date Recorded Last EPDS [...] Comments Blood Pressure 134/87 11/15/2024 2:15 PM INSPECTOR PURCHASED PARTS Pulse 78 11/15/2024 4:25 PM INSPECTOR PURCHASED PARTS Temperature 36.2 C (97.1 F) 11/15/2024 11:21 AM INSPECTOR PURCHASED PARTS Respiratory Rate 18 11/15/2024 11:21 AM INSPECTOR PURCHASED PARTS Oxygen Saturation 97% 11/15/2024 4:25 PM INSPECTOR PURCHASED PARTS Inhaled Oxygen Concentration - - Weight 79.4 [...] UA WITH MICROSCOPIC STAT 11/15/2024 1:43 PM INSPECTOR PURCHASED PARTS CBC WITH PLATELETS & DIFFERENTIAL STAT 11/15/2024 11:49 AM INSPECTOR PURCHASED PARTS CBC WITH PLATELETS AND DIFFERENTIAL STAT 11/15/2024 11:49 AM INSPECTOR PURCHASED PARTS INFLUENZA A/B, RSV AND SARS-COV2 PCR STAT 11/15/2024 11:49 AM INSPECTOR PURCHASED PARTS ETHYL ALCOHOL LEVEL STAT 11/15/2024 1 1:49 AM INSPECTOR PURCHASED PARTS HCG QUALITATIVE STAT 11/15/2024 11:49 AM INSPECTOR PURCHASED PARTS LIPASE STAT 11/15/2024 11:49 AM INSPECTOR PURCHASED PARTS HEPATIC FUNCTION PANEL STAT 11/15/2024 11:49 AM INSPECTOR PURCHASED PARTS BASIC METABOLIC PANEL STAT 11/15/2024 11:49 AM INSPECTOR PURCHASED PARTS EKG 12-LEAD, TRACING ONLY STAT 11/15/2024 11:31 AM INSPECTOR PURCHASED PARTS CHLAMYDIA TRACHOMATIS/NEISSERIA GONORRHOEAE BY PCR STAT 07/15/2024 9:43 PM CDT HIV ANTIGEN ANTIBODY COMBO Add-On 08/15/2022 3:20 PM CDT from Last 3 Months or Most Recently Relevant to Health Maintenance Results * (ABNORMAL) UA with Microscopic (11/15/2024 1:43 PM INSPECTOR PURCHASED PARTS) Color Urine Straw Colorless, Straw, Light Yellow, Yellow 11/15/2024 2:07 PM INSPECTOR PURCHASED PARTS LABORATORY Appearance Urine Clear Clear 11/15/19 2:07 PM INSPECTOR PURCHASED PARTS LABORATORY Glucose Urine 100(A) Negative mg/dL 11/15/2024 2:07 PM INSPECTOR PURCHASED PARTS LABORATORY Bilirubin Urine Negative Negative 2:07 PM INSPECTOR PURCHASED PARTS LABORATORY Ketones Urine 40(A) Negative mg/dL 11/15/2024 2:07 PM INSPECTOR PURCHASED PARTS LABORATORY Specific [place] Urine 1.017 1.003 - 1.035 11/15/2024 2:07 PM INSPECTOR PURCHASED PARTS LABORATORY Blood Urine Negative Negative 11/15/2024 2:07 PM INSPECTOR PURCHASED PARTS LABORATORY pH Urine 7.0 5.0 - 7.0 11/15/2024 2:07 PM INSPECTOR PURCHASED PARTS LABORATORY Protein Albumin Urine Negative Negative mg/dL 11/15/2024 2:07 PM INSPECTOR PURCHASED PARTS LABORATORY Urobilinogen Urine Normal Normal, 2.0 mg/dL 11/15/2024 2:07 PM INSPECTOR PURCHASED PARTS LABORATORY Nitrite Urine Negative Negative 11/15/2024 2:07 PM INSPECTOR PURCHASED PARTS LABORATORY Leukocyte Esterase Urine Negative Negative 11/15/2024 2:07 PM INSPECTOR PURCHASED PARTS LABORATORY Mucus Urine Present(A) None Seen /LPF 11/15/2024 2:07 PM INSPECTOR PURCHASED PARTS LABORATORY RBC Urine 1 <=2 /HPF 11/15/2024 2:07 PM INSPECTOR PURCHASED PARTS LABORATORY WBC Urine <1 <=5 /HPF 11/15/2024 2:07 PM INSPECTOR PURCHASED PARTS LABORATORY Squamous Epithelials Urine 1 <=1 /HPF 11/15/2024 2:07 PM INSPECTOR PURCHASED PARTS LABORATORY Urine MID-STREAM URINE SPECIMEN / Unknown Non-blood Collection / Unknown 11/15/2024 1:43 PM INSPECTOR PURCHASED PARTS 11/15/2024 1:52 PM INSPECTOR PURCHASED PARTS us Ankit Bailey MD LAB - URINE ORDERABLES Final Result LABORATORY [facility] Acute Care Lab [address] Lab (1st floor, no room number) [place] [address] * (ABNORMAL) CBC with platelets and differential (11/15/2024 11:49 AM INSPECTOR PURCHASED PARTS) WBC Count 15.6(H) 4.0 - 11.0 10e3/uL 11/15/2024 12:32 PM INSPECTOR PURCHASED PARTS RH LABORATORY RBC Count 4.44 3.80 - 5.20 10e6/uL 11/15/2024 12:32 PM INSPECTOR PURCHASED PARTS [facility] LABORATORY Hemoglobin 13.8 11.7 - 15.7 g/dL 11/15/2024 12:32 PM INSPECTOR PURCHASED PARTS [facility] LABORATORY Hematocrit 41.7 35.0 - 47.0 % 11/15/2024 12:32 PM INSPECTOR PURCHASED PARTS [facility] LABORATORY MCV 94 78 - 100 fL 11/15/2024 12:32 PM INSPECTOR PURCHASED PARTS RH LABORATORY MCH 31.1 26.5 - 33.0 pg 11/15/2024 12:32 PM INSPECTOR PURCHASED PARTS RH LABORATORY MCHC 33.1 31.5 - 36.5 g/dL 11/15/2024 12:32 PM INSPECTOR PURCHASED PARTS RH LABORATORY RDW 12.6 10.0 - 15.0 % 11/15/2024 12:32 PM INSPECTOR PURCHASED PARTS [facility] LABORATORY Platelet Count 330 150 - 450 10e3/uL 11/15/2024 12:32 PM INSPECTOR PURCHASED PARTS [facility] LABORATORY % Neutrophils 64 % 11/15/2024 12:32 PM INSPECTOR PURCHASED PARTS [facility] LABORATORY % Lymphocytes 28 % 11/15/2024 12:32 PM INSPECTOR PURCHASED PARTS [facility] LABORATORY % Monocytes 6 % 11/15/2024 12:32 PM INSPECTOR PURCHASED PARTS [facility] LABORATORY % Eosinophils 0 % 11/15/2024 12:32 PM INSPECTOR PURCHASED PARTS [facility] LABORATORY % Basophils 0 % 11/15/2024 12:32 PM INSPECTOR PURCHASED PARTS [facility] LABORATORY % Immature Granulocytes 1 % 11/15/2024 12:32 PM INSPECTOR PURCHASED PARTS [facility] LABORATORY NRBCs per 100 WBC 0 <1 /100 025 12:32 PM INSPECTOR PURCHASED PARTS [facility] LABORATORY Absolute Neutrophils 10.0(H) 1.6 - 8.3 10e3/uL 11/15/2024 12:32 PM INSPECTOR PURCHASED PARTS [facility] LABORATORY Absolute Lymphocytes 4.3 0.8 - 5.3 10e3/uL 11/15/2024 12:32 PM INSPECTOR PURCHASED PARTS [facility] LABORATORY Absolute Monocytes 1.0 0.0 - 1.3 10e3/uL 11/15/2024 12:32 PM INSPECTOR PURCHASED PARTS [facility] LABORATORY Absolute Eosinophils 0.1 0.0 - 0.7 10e3/uL 11/15/2024 12:32 PM INSPECTOR PURCHASED PARTS [facility] LABORATORY Absolute Basophils 0.1 0.0 - 0.2 10e3/uL 11/15/2024 12:32 PM INSPECTOR PURCHASED PARTS [facility] LABORATORY Absolute Immature Granulocytes 0.2 <=0.4 10e3/uL 11/15/2024 12:32 PM INSPECTOR PURCHASED PARTS [facility] LABORATORY Absolute NRBCs 0.0 10e3/uL 11/15/2024 12:32 PM INSPECTOR PURCHASED PARTS LABORATORY Blood BLOOD SPECIMEN / Unknown Venipuncture / Unknown 11/15/2024 11:49 AM INSPECTOR PURCHASED PARTS 11/15/2024 12:24 PM INSPECTOR PURCHASED PARTS us Ankit Bailey MD LAB - BLOOD ORDERABLES Final Result LABORATORY [facility] Acute Care Lab [address] [facility] Lab (1st floor, no room number) [place] [address] * Influenza A/B, RSV and SARS-CoV2 PCR (COVID-19) Nasopharyngeal (11/15/2024 11:49 AM INSPECTOR PURCHASED PARTS) [facility] Influenza A PCR Negative Negative 11/15/2024 1:41 PM INSPECTOR PURCHASED PARTS [facility] LABORATORY Influenza B PCR Negative Negative 11/15/2024 1:41 PM INSPECTOR PURCHASED PARTS [facility] LABORATORY RSV PCR Negative Negative 11/15/2024 1:41 PM INSPECTOR PURCHASED PARTS LABORATORY SARS CoV2 PCR Negative Negative 11/15/2024 1:41 PM INSPECTOR PURCHASED PARTS LABORATORY Comment:NEGATIVE: SARS-CoV-2 (COVID-19) RNA not detected, presumed negative. Swab NASOPHARYNGEAL STRUCTURE / Unknown Non-blood Collection / Unknown 11/15/2024 11:49 AM INSPECTOR PURCHASED PARTS 11/15/2024 12:24 PM INSPECTOR PURCHASED PARTS Narrative LABORATORY - 11/15/2024 1:41 PM INSPECTOR PURCHASED PARTS Testing was performed using the Xpert Xpress CoV2/Flu/RSV Assay on the [employer] GeneXpert Instrument. This test should be ordered [...] management. This test was validated by the [facility]. These laboratories are certified under the Clinical Laboratory Improvement Amendments of 1988 (CLIA-88) as qualified to perfom high complexity laboratory testing. Ankit Bailey MD LAB - MICRO GENERAL ORD ERABLES Final Result [facility] [address] [facility] ([facility], no room number) [place] [address] * Lipase (11/15/2024 11:49 AM INSPECTOR PURCHASED PARTS) Lipase 14 13 - 60 U/L 11/15/2024 12:54 PM INSPECTOR PURCHASED PARTS LABORATORY Blood BLOOD SPECIMEN / Unknown Venipuncture / Unknown 11/15/2024 11:49 AM INSPECTOR PURCHASED PARTS 11/15/2024 12:24 PM INSPECTOR PURCHASED PARTS Ankit Bailey MD LAB - BLOOD ORDERABLES Final Result [facility] [address] [facility] Lab (1st floor, no room number) [place] [address] * Hepatic function panel (11/15/2024 11:49 AM INSPECTOR PURCHASED PARTS) Protein Total 6.9 6.4 - 8.3 g/dL 11/15/2024 12:54 PM INSPECTOR PURCHASED PARTS [facility] LABORATORY Albumin 4.3 3.5 - 5.2 g/dL 11/15/2024 12:54 PM INSPECTOR PURCHASED PARTS LABORATORY Bilirubin Total 0.2 <=1.2 mg/dL 11/15/2024 12:54 PM INSPECTOR PURCHASED PARTS [facility] LABORATORY Alkaline Phosphatase 57 40 - 150 U/L 11/15/2024 12:54 PM INSPECTOR PURCHASED PARTS [facility] LABORATORY AST 18 0 - 45 U/L 11/15/2024 12:54 PM INSPECTOR PURCHASED PARTS [facility] LABORATORY ALT 21 0 - 50 U/L 11/15/2024 12:54 PM INSPECTOR PURCHASED PARTS [facility] LABORATORY Bilirubin Direct <0.20 0.00 - 0.30 mg/dL 11/15/2024 12:54 PM INSPECTOR PURCHASED PARTS [facility] LABORATORY Blood BLOOD SPECIMEN / Unknown Venipuncture / Unknown 11/15/2024 11:49 AM INSPECTOR PURCHASED PARTS 11/15/2024 12:24 PM INSPECTOR PURCHASED PARTS Ankit Bailey MD LAB - BLOOD ORDERABLES Final Result [facility] [address] [employer] Lab (1st floor, no room number) [place] [phone] * HCG QUALitative (blood) (11/15/2024 11:49 AM INSPECTOR PURCHASED PARTS) hCG Serum Qualitative Negative Negative KENA 11/15/2024 12:59 PM INSPECTOR PURCHASED PARTS [facility] LABORATORY Comment:This test is for scr eening purposes. Results should be interpreted along with the clinical picture. Confirmation testing is available if warranted by ordering [id number], HCG Quantitative . Blood BLOOD SPECIMEN / Unknown Venipuncture / Unknown 11/15/2024 11:49 AM INSPECTOR PURCHASED PARTS 11/15/2024 12:24 PM INSPECTOR PURCHASED PARTS Ankit Bailey MD LAB - BLOOD ORDERABLES Final Result [facility] [address] Lab (1st floor, no room number) [place] [address] * Alcohol level blood (11/15/2024 11:49 AM INSPECTOR PURCHASED PARTS) Alcohol ethyl <0.01 <=0.01 g/dL 11/15/2024 12:54 PM INSPECTOR PURCHASED PARTS [facility] LABORATORY Blood BLOOD SPECIMEN / Unknown Venipuncture / Unknown 11/15/2024 11:49 AM INSPECTOR PURCHASED PARTS 11/15/2024 12:24 PM INSPECTOR PURCHASED PARTS us Ankit Bailey MD LAB - BLOOD ORDERABLES Final Result LABORATORY [facility] Lab [address] Lab (1st floor, no room number) [place] [address] * (ABNORMAL) Basic metabolic panel (11/15/2024 11:49 AM INSPECTOR PURCHASED PARTS) [facility] Sodium 137 135 - 145 mmol/L 11/15/2024 12:54 PM [facility]OR[facility] Potassium 3.6 3.4 - 5.3 mmol/L 11/15/2024 12:54 PM [facility] Chloride 103 98 - 107 mmol/L 11/15/2024 12:54 PM [facility] Carbon Dioxide (CO2) 22 22 - 29 mmol/L 11/15/2024 12:54 PM [facility] Anion Gap 12 7 - 15 mmol/L 11/15/2024 12:54 PM [facility] Urea Nitrogen 10.2 6.0 - 20.0 mg/dL 11/15/2024 12:54 PM [facility] Creatinine 0.84 0.51 - 0.95 mg/dL 11/15/2024 12:54 PM [facility] GFR Estimate >90 >60 mL/min/1.7 3m2 11/15/2024 12:54 PM [facility] Comment:eGFR calculated [facility] 2020 CKD-EPI equation. Calcium 8.9 8.8 - 10.4 mg/dL 11/15/2024 12:54 PM [facility] Glucose 150(H) 70 - 99 mg/dL 11/15/2024 12:54 PM [facility] Blood BLOOD SPECIMEN / Unknown Venipuncture / Unknown 11/15/2024 11:49 AM INSPECTOR PURCHASED PARTS 11/15/2024 12:24 PM INSPECTOR PURCHASED PARTS Ankit Bailey MD LAB - BLOOD ORDERABLES Final Result LABORATORY [facility] Lab [address] Lab (1st floor, no room number) [place] [address], [facility] * EKG 12 lead (11/15/2024 11:31 AM INSPECTOR PURCHASED PARTS) Systolic Blood Pressure mmHg RADIOLOGY RESULTS Diastolic Blood Pressure mmHg RADIOLOGY RESULTS Ventricular Rate 80 BPM RAD IOLOGY RESULTS Atrial Rate 80 BPM RADIOLOG Y RESULTS [place] Interval 144 ms RADIOLOG Y RESULTS QRS Duration 82 ms RADIOLO GY RESULTS QT 414 ms RADIOLOGY RESULTS QTc 477 ms RADIOLOGY RESULTS P [place] 48 degrees RADIOLOGY RESULTS R AXIS 58 degrees RADIOLOGY RESULTS T [place] 48 degrees RADIOLOGY RESULTS Interpretation ECG Sinus rhythm Normal ECG No previous ECGs available Unconfirmed report - interpretation of this ECG is computer generated - see medical record for final interpretation Confirmed by - EMERGENCY ROOM, PHYSICIAN ([id number]), commercial production editor TATA CRUZ ([id number]) on 11/15/2024 2:28:14 PM RADIOLOGY RESULTS 11/15/2024 11:3 1 AM INSPECTOR PURCHASED PARTS 11/15/2024 2:28 PM INSPECTOR PURCHASED PARTS us Ankit Bailey MD ECG ORDERABLES Edited Result - Final RADIOLOGY RESULTS * Chlamydia trachomatis/Neisseria gonorrhoeae by PCR (07/15/2024 9:43 PM CDT) Chlamydia Trachomatis Negative Negative 07/16/2024 11:01 AM CDT [facility] Comment: Negative for C. trachomatis rRNA by assistant women's rowing coach mediated amplification. A negative result by assistant women's rowing coach mediated amplification does not preclude the presence of infection because results are dependent on proper and adequate collection, absence of inhibitors and sufficient rRNA to be detected. Neisseria gonorrhoeae Negative Negative 07/16/2024 11:01 AM CDT [facility] Comment:Negative for N. gono rrhoeae rRNA by assistant women's rowing coach mediated amplification. A negative result by assistant women's rowing coach mediated amplification does not preclude the presence of C. trachomatis infection because results are dependent on proper and adequate collection, absence of inhibitors and sufficient rRNA to be detected. Swab CERVIX UTERI STRUCTURE / Unknown Non-blood Collection / Unknown 07/15/2024 9:43 PM CDT 07/15/2024 9:47 PM CDT us Paul Bryant MD LAB - MICRO GENERAL MIKE OSULLIVAN Final Result [facility] Inf. Diseases Diag. Lab [address] [facility] [address] [facility] [place] [address] * HIV Antigen Antibody Combo (08/15/2022 3:20 [...] UM SPECIALTY CORE/PROT/ENDO UM Specialty Core/Prot/Endo [address] [facility], [address] [phone] from Last 3 Months or Most Recently Relevant to Health Maintenance Insurance [employer] [place] [employer] [facility] [place] Address: [id number] [place] [address] [phone] [place] [address] [facility] [place] Address: [address] [place] [phone] Advance Directives For more information, please contact: [phone] * Full Code (Latest Code Status on [...] mileye nt/ legal decision maker Care Teams Delimber Operator Relationship Specialty Start Date End Date No Ref-Primary, Physician PCP - General 07/04/19
--- OUTSIDE RECORDS SUMMARY | 2024-12-13 00:03 | XMS_ITS | Encounter Summary ---
Author Organization [place] Address [facility] [place] [address] Care Team Providers Care Building Maintenance Repairer Name Role Phone No Ref-Primary, Physician Primary Care Provider Reason for Visit * Reason Onset Date Comments Outpatient 07/04/2019 Encounter Details Date Type Department Care Team ([facility] Contact Info) Description 07/04/2019 Telephone [facility] Behavioral Health Intake [address] [place] [id number] Generic, Behavioral Intake, Outpatient Social History Tobacco [...] CDT Intake left voicemail for Beth Nunez ([phone]) @ [facility] to request she contact [facility] and ask them to fax Rule 25 [...] helpful to have the Rule 25 that [facility] did. This client may benefit from having a Dual Diagnosis Assessment to better understand current mentalhealth, chemical health, dynamics in the home, motivation, safety, ect. Govind ----- Message ----- From: Juliette Bhakta Sent: 07/12/2019 11:57 AM CDT To: [facility] [place] Subject: Adol Referral Rec'd fax from Ayana Delatorre ([phone]) @ [facility] via Raven Nunez ([phone]) @ [facility] of Individual Trmt Plan, Diagnostic Addendum, and SHARRI. Per previous intake note, pt is being referred to [facility]. ?? Referral has already been created. [...] Medications: will fax over with clinical ?? [facility] did Rule 25. No prior tx No other legal ?? Doing pretty well in school. Contact with grandparents not parents. ?? Restraining order on Dad - No contact. Be [place] ?? Yessina will fax over clinical. [facility] * Telephone Encounter - Juliette Bhakta - 07/12/2019 12:38 PM CDT Rec'd fax from Riana (([phone]) [facility] via Raven Nunez ([phone])@ [facility] of Child/Adol DA. Faxed to program and sent mssg via pool. Filed with pt's other clinical. * Telephone Encounter - Juliette Bhakta - 07/12/2019 11:41 AM CDT Rec'd fax from Ayana Delatorre ([phone]) @ [facility] via Raven Nunez ([phone]) @ [facility] of Individual Trmt Plan, Diagnostic Addendum, and SHARRI. Per previous intake note, pt is being referred to [facility]. Referral has already been created. Faxed to program and sent mssg via pool Filed * Telephone Encounter - Vilma Casanova - 07/11/2019 3:17 PM CDT Received call from Rosalinda, rig supervisor at [facility]. She is referring to [facility]. She will fax over DA and [...] Medications: will fax over with clinical [facility] did Rule 25. No prior tx No [...] Out COVID-19 12/08/2023 12/08/2023 12/09/2023 11:33 AM FUEL EFFICIENT AIRCRAFT DESIGNER Rule Out COVID-19 11/15/2024 11/15/2024 11/15/2024 1:41 PM FUEL EFFICIENT AIRCRAFT DESIGNER documented as of this encounter Care Teams Building Maintenance Repairer Relationship Specialty Start Date End Date No Ref-Primary, Physician PCP - General 07/04/19 documented as of this encounter
--- OUTSIDE RECORDS SUMMARY | 2024-12-13 00:03 | XMS_ITS | Encounter Summary ---
Author Organization [place] Address [address] [place] [address]. [place] [address] Care Team Providers Care Manager Spring Name Role Phone No Ref-Primary, Physician Primary [...] Answer Date Recorded PHQ-2 Score 2 06/07/2024 [place] Depression Scale Answer Date Recorded Last EPDS [...] Out COVID-19 11/15/2024 11/15/2024 11/15/2024 1:41 PM LANDFILL GAS COLLECTION SYSTEM OPERATOR Assessment Noted Time PHQ-9 Depression Total Score: 10 024 10:15 AM CDT documented as of this encounter Care Teams Manager Spring Relationship Specialty Start Date End Date No Ref-Primary, Physician PCP - General 07/04/19 documented as of this encounter
--- OUTSIDE RECORDS SUMMARY | 2024-12-13 00:03 | XMS_ITS | Encounter Summary ---
Author Organization [place] Address [facility] [place] [address] Care Team Providers Care Distiller Name Role Phone No Ref-Primary, Physician Primary Care Provider Encounter Details Date Type Department Care Team (Late st Contact Info) Description 06/15/2024 [facility] Medical Advice [facility] [address] [address] [place] [address] Jazmin Conway, CENTERLESS GRINDER TENDER Social History Tobacco Use Types Packs/Day Years Used Date Smoking Tobacco: Never Smokeless Tobacco: Never Alcohol Use Standard Drinks/Week Comments Not Currently 0 (1 standard drink = 0.6 oz pur e alcohol) stopped for PHQ-2 Answer Date Recorded PHQ-2 Score 2 06/07/2024 [place] Depression Scale Answer Date Recorded Last EPDS [...] Out COVID-19 11/15/2024 11/15/2024 11/15/2024 1:41 PM PATTERN ASSEMBLER Assessment Noted Time PHQ-9 Depression Total Score: 10 024 10:15 AM CDT documented as of this encounter Care Teams Distiller Relationship Specialty Start Date End Date No Ref-Primary, Physician PCP - General 07/04/19 documented as of this encounter
--- OUTSIDE RECORDS SUMMARY | 2024-12-13 00:03 | XMS_ITS | Encounter Summary ---
Author Organization [place] Address [address] [place] [address]. [place] [address] Care Team Providers Care Operator Automated Process Name Role Phone No Ref-Primary, Physician Primary Care Provider Reason for Visit * Reason Comments Ingestion Encounter Details Date Type Department Care Team (Late st Contact Info) Description 11/15/2024 10:57 AM BASE FILLER - 11/15/2024 5:48 PM [facility] Emergency Dept [address] [place] [address] Ankit Bailey MD [facility] [address] [address] Bob Torres MD [facility] [address], [address] [address] Nausea and vomiting, unspecified vomiting type; Nonspecific abdominal pain; Anxiety Discharge Disposition: Home or Self Care Social History Tobacco Use Types Packs/Day Years Used Date Smoking Tobacco: Never Smokeless Tobacco: Never Alcohol Use Standard Drinks/Week Comments Not Currently 0 (1 standard drink = 0.6 oz pur e alcohol) stopped for PHQ-2 Answer Date Recorded PHQ-2 Score 2 06/07/2024 [place] Depression Scale Answer Date Recorded Last EPDS [...] Comments Blood Pressure 134/87 11/15/2024 2:15 PM BASE FILLER Pulse 78 11/15/2024 4:25 PM BASE FILLER Temperature 36.2 C (97.1 F) 11/15/2024 11:21 AM BASE FILLER Respiratory Rate 18 11/15/2024 11:21 AM BASE FILLER Oxygen Saturation 97% 11/15/2024 4:25 PM BASE FILLER Inhaled Oxygen Concentration - - Weight - - Height - - Body Mass Index - - documented in this encounter Discharge Instructions * Attachments The following attachments cannot be sent through Care Everywhere. * Abdominal Pain (Mexican) * Nausea and Vomiting (Mexican) documented in this encounter Medications at Time [...] arrives via ems- was picked up from [place] where she is homeless living in her [...] WDL WDL Cardiac WDL Cardiac WDL WDL FILLER * Ankit Bailey MD - 11/15/2024 11:00 [...] has been living in her car in [place] and adds that she is unsure when [...] Urine Negative Ketones Urine 40 (*) Specific [place] Urine 1.017 Blood Urine Negative pH Urine [...] Pressure Ventricular Rate 80 Atrial Rate 80 TN Interval 144 QRS Duration 82 QT 414 QTc 477 P Waelder 48 R AXIS 58 T Waelder 48 Interpretation ECG Sinus rhythm Normal ECG No previous ECGs available Unconfirmed report - interpretation of this ECG is computer generated - see medical record for final interpretation Confirmed by - EMERGENCY ROOM, PHYSICIAN ([id number]), editor publications TATA CRUZ ([id number]) on 11/15/2024 2:28:14PM Independent Interpretation None ED [...] Course ED Course as of 11/15/24 1555 [facility] Nov 15, 2024 1109 I obtained history and examined the patient as noted above. Additional Documentation None Medical Decision Making / Diagnosis [facility] Diagnoses: None MIPS None MDM Gifty [...] suspect that cyclical vomiting could be the driver examiner of her presenting symptoms. I do not [...] to me. Ankit Bailey MD 11/15/24 1556 FILLER * Digna Nichols RN - 11/15/2024 10:57 AM CST Bed: ED06 Expected date: Expected time: Means of arrival: Comments: Court 525 FILLER documented in this encounter Plan of Treatment Not on file documented as of this encounter Procedures Procedure Name Priority Date/Time Associated Diagnosis Comments ROUTINE UA WITH MICROSCOPIC STAT 11/15/2024 1:43 PM BASE FILLER CBC WITH PLATELETS AND DIFFERENTIAL STAT 11/15/2024 11:49 AM BASE FILLER INFLUENZA A/B, RSV AND SARS-COV2 PCR STAT 11/15/2024 11:49 AM BASE FILLER CBC WITH PLATELETS & DIFFERENTIAL STAT 11/15/2024 11:49 AM BASE FILLER LIPASE STAT 11/15/2024 11:49 AM BASE FILLER HEPATIC FUNCTION PANEL STAT 11/15/2024 11:49 AM BASE FILLER HCG QUALITATIVE STAT 11/15/2024 11:49 AM BASE FILLER ETHYL ALCOHOL LEVEL STAT 11/15/2024 1 1:49 AM BASE FILLER BASIC METABOLIC PANEL STAT 11/15/2024 11:49 AM BASE FILLER EKG 12-LEAD, TRACING ONLY STAT 11/15/2024 11:31 AM BASE FILLER documented in this encounter Results * (ABNORMAL) UA with Microscopic (11/15/2024 1:43 PM BASE FILLER) Color Urine Straw Colorless, Straw, Light Yellow, Yellow 11/15/2024 2:07 PM [facility] Appearance Urine Clear Clear 11/15/19 25 2:07 PM [facility] Glucose Urine 100(A) Negative mg/dL 11/15/2024 2:07 PM [facility] Bilirubin Urine Negative Negative 2:07 PM [facility] Ketones Urine 40(A) Negative mg/dL 11/15/2024 2:07 PM [facility] LABOR[facility] Specific [place] Urine 1.017 1.003 - 1.035 11/15/2024 2:07 PM [facility] Blood Urine Negative Negative 11/15/2024 2:07 PM [facility] pH Urine 7.0 5.0 - 7.0 11/15/2024 2:07 PM [facility] Protein Albumin Urine Negative Negative mg/dL 11/15/2024 2:07 PM [facility] Urobilinogen Urine Normal Normal, 2.0 mg/dL 11/15/2024 2:07 PM [facility] Nitrite Urine Negative Negative 11/15/2024 2:07 PM [facility] Leukocyte Esterase Urine Negative Negative 11/15/2024 2:07 PM BASE FILLER [facility] Mucus Urine Present(A) None Seen /LPF 11/15/2024 2:07 PM BASE FILLER [facility] RBC Urine 1 <=2 /HPF 11/15/2024 2:07 PM BASE FILLER [facility] WBC Urine <1 <=5 /HPF 11/15/2024 2:07 PM BASE FILLER [facility] Squamous Epithelials Urine 1 <=1 /HPF 11/15/2024 2:07 PM BASE FILLER [facility] Urine MID-STREAM URINE SPECIMEN / Unknown Non-blood Collection / Unknown 11/15/2024 1:43 PM BASE FILLER 11/15/2024 1:52 PM BASE FILLER us Ankit Bailey MD LAB - URINE ORDERABLES Final Result [facility] [address] [facility] Lab (1st floor, no room number) [place] [address], [facility] * (ABNORMAL) CBC with platelets and differential (11/15/2024 11:49 AM BASE FILLER) WBC Count 15.6(H) 4.0 - 11.0 10e3/uL 11/15/2024 12:32 PM BASE FILLER [facility] RBC Count 4.44 3.80 - 5.20 10e6/uL 11/15/2024 12:32 PM BASE FILLER [facility] Hemoglobin 13.8 11.7 - 15.7 g/dL 11/15/2024 12:32 PM BASE FILLER [facility] Hematocrit 41.7 35.0 - 47.0 % 11/15/2024 12:32 PM BASE FILLER [facility] MCV 94 78 - 100 fL 11/15/2024 12:32 PM BASE FILLER [facility] MCH 31.1 26.5 - 33.0 pg 11/15/2024 12:32 PM BASE FILLER [facility] MCHC 33.1 31.5 - 36.5 g/dL 11/15/2024 12:32 PM BASE FILLER [facility] RDW 12.6 10.0 - 15.0 % 11/15/2024 12:32 PM BASE F[facility]ER [facility] Platelet Count 330 150 - 450 10e3/uL 11/15/2024 12:32 PM BASE FILLER [facility] % Neutrophils 64 % 11/15/2024 12:32 PM BASE FILLER [facility] % Lymphocytes 28 % 11/15/2024 12:32 PM BASE FILLER [facility] % Monocytes 6 % 11/15/2024 12:32 PM BASE FILLER [facility] % Eosinophils 0 % 11/15/2024 12:32 PM BASE FILLER [facility] % Basophils 0 % 11/15/2024 12:32 PM BASE FILLER [facility] % Immature Granulocytes 1 % 11/15/2024 12:32 PM BASE FILLER [facility] NRBCs per 100 WBC 0 <1 /100 025 12:32 PM BASE FILLER [facility] Absolute Neutrophils 10.0(H) 1.6 - 8.3 10e3/uL 11/15/2024 12:32 PM BASE FILLER [facility] Absolute Lymphocytes 4.3 0.8 - 5.3 10e3/uL 11/15/2024 12:32 PM BASE FILLER [facility] Absolute Monocytes 1.0 0.0 - 1.3 10e3/uL 11/15/2024 12:32 PM BASE FILLER [facility] Absolute Eosinophils 0.1 0.0 - 0.7 10e3/uL 11/15/2024 12:32 PM BASE FILLER [facility] Absolute Basophils 0.1 0.0 - 0.2 10e3/uL 11/15/2024 12:32 PM BASE FILLER [facility] Absolute Immature Granulocytes 0.2 <=0.4 10e3/uL 11/15/2024 12:32 PM BASE FILLER [facility] Absolute NRBCs 0.0 10e3/uL 11/15/2024 12:32 PM BASE FILLER [facility] Blood BLOOD SPECIMEN / Unknown Venipuncture / Unknown 11/15/2024 11:49 AM BASE FILLER 11/15/2024 12:24 PM BASE FILLER us Ankit Bailey MD LAB - BLOOD ORDERABLES Final Result [facility] [address] [facility] Lab (1st floor, no room number) [place] [address], [facility] * Influenza A/B, RSV and SARS-CoV2 PCR (COVID-19) Nasopharyngeal (11/15/2024 11:49 AM BASE FILLER) [facility] Influenza A PCR Negative Negative 11/15/2024 1:41 PM BASE FILLER [facility] Influenza B PCR Negative Negative 11/15/2024 1:41 PM BASE FILLER [facility] RSV PCR Negative Negative 11/15/2024 1:41 PM BASE FILLER [facility] SARS CoV2 PCR Negative Negative 11/15/2024 1:41 PM BASE FILLER [facility] Comment:NEGATIVE: SARS-CoV-2 (COVID-19) RNA not detected, presumed negative. Swab NASOPHARYNGEAL STRUCTURE / Unknown Non-blood Collection / Unknown 11/15/2024 11:49 AM BASE FILLER 11/15/2024 12:24 PM BASE FILLER Narrative [facility] - 11/15/2024 1:41 PM BASE FILLER Testing was performed using the Xpert Xpress CoV2/Flu/RSV Assay on the DatameerXpert Instrument. This test should be ordered for [...] management. This test was validated by the [facility]. These laboratories are certified under the Clinical Laboratory Improvement Amendments of 1988 (CLIA-88) as qualified to perfom high complexity laboratory testing. Ankit Bailey MD LAB - MICRO GENERAL ORD ERABLES Final Result LABORATORY [facility] [address] [facility] Lab (1st floor, no room number) [place] [address], [facility] * Alcohol level blood (11/15/2024 11:49 AM BASE FILLER) Alcohol ethyl <0.01 <=0.01 g/dL 11/15/2024 12:54 PM [facility] LAB[facility] Blood BLOOD SPECIMEN / Unknown Venipuncture / Unknown 11/15/2024 11:49 AM BASE FILLER 11/15/2024 12:24 PM BASE FILLER Ankit Bailey MD LAB - BLOOD ORDERABLES Final Result Performing Organization Address [facility]/ZIP Co de Phone Number [facility] [address] Lab (1st floor, no room number) [place] [phone] [place] [address] * HCG QUALitative (blood) (11/15/2024 11:49 AM BASE FILLER) [facility] hCG Serum Qualitative Negative Negative KENA 11/15/2024 12:59 PM [facility] LAB[facility] Comment:This test is for scr eening purposes. Results should be interpreted along with the clinical picture. Confirmation testing is available if warranted by ordering [id number], HCG Quantitative . Blood BLOOD SPECIMEN / Unknown Venipuncture / Unknown 11/15/2024 11:49 AM BASE FILLER 11/15/2024 12:24 PM BASE FILLER Ankit Bailey MD LAB - BLOOD ORDERABLES Final Result Performing Organization Address [facility] Co de Phone Number [facility] [address] Lab (1st floor, no room number) [place] [address] * Lipase (11/15/2024 11:49 AM BASE FILLER) [facility] Lipase 14 13 - 60 U/L 11/15/2024 12:54 PM [facility] LABORATORY Blood BLOOD SPECIMEN / Unknown Venipuncture / Unknown 11/15/2024 11:49 AM BASE FILLER 11/15/2024 12:24 PM BASE FILLER Ankit Bailey MD LAB - BLOOD ORDERABLES Final Result Performing Organization Address [facility]/ZIP Co de Phone Number [facility] [address] Lab (1st floor, no room number) [place] [phone] [place] [address] * Hepatic function panel (11/15/2024 11:49 AM BASE FILLER) [facility] Protein Total 6.9 6.4 - 8.3 g/dL 11/15/2024 12:54 PM BASE FILLER [facility] Albumin 4.3 3.5 - 5.2 g/dL 11/15/2024 12:54 PM [facility] Bilirubin Total 0.2 <=1.2 mg/dL 11/15/2024 12:54 PM [facility] Alkaline Phosphatase 57 40 - 150 U/L 11/15/2024 12:54 PM [facility] AST 18 0 - 45 U/L 11/15/2024 12:54 PM [facility] ALT 21 0 - 50 U/L 11/15/2024 12:54 PM [facility] Bilirubin Direct <0.20 0.00 - 0.30 mg/dL 11/15/2024 12:54 PM [facility] Blood BLOOD SPECIMEN / Unknown Venipuncture / Unknown 11/15/2024 11:49 AM BASE FILLER 11/15/2024 12:24 PM [facility] us Ankit Bailey MD LAB - BLOOD ORDERABLES Final Result LABORATORY [facility] [address] Lab (1st floor, no room number) [place] [address] * (ABNORMAL) Basic metabolic panel (11/15/2024 11:49 AM BASE FILLER) Sodium 137 135 - 145 mmol/L 11/15/2024 12:54 PM [facility] Potassium 3.6 3.4 - 5.3 mmol/L 11/15/2024 12:54 PM [facility] Chloride 103 98 - 107 mmol/L 11/15/2024 12:54 PM [facility] Carbon Dioxide (CO2) 22 22 - 29 mmol/L 11/15/2024 12:54 PM [facility] Anion Gap 12 7 - 15 mmol/L 11/15/2024 12:54 PM [facility] Urea Nitrogen 10.2 6.0 - 20.0 mg/dL 11/15/2024 12:54 PM [facility] Creatinine 0.84 0.51 - 0.95 mg/dL 11/15/2024 12:54 PM [facility] GFR Estimate >90 >60 mL/min/1.7 3m2 11/15/2024 12:54 PM BASE FILLER [facility] Comment:eGFR calculated 2020 CKD-EPI equation. Calcium 8.9 8.8 - 10.4 mg/dL 11/15/2024 12:54 PM [facility]ER LAB[facility]ORY Glucose 150(H) 70 - 99 mg/dL 11/15/2024 12:54 PM BASE F[facility]ER LAB[facility] Blood BLOOD SPECIMEN / Unknown Venipuncture / Unknown 11/15/2024 11:49 AM BASE FILLER 11/15/2024 12:24 PM BASE FILLER Ankit Bailey MD LAB - BLOOD ORDERABLES Final Result [facility] [address] Lab (1st floor, no room number) [place] [address] * EKG 12 lead (11/15/2024 11:31 AM BASE FILLER) Systolic Blood Pressure mmHg RADIOLOGY RESULTS Diastolic Blood Pressure mmHg RADIOLOGY RESULTS Ventricular Rate 80 BPM RAD IOLOGY RESULTS Atrial Rate 80 BPM RADIOLOG Y RESULTS TN Interval 144 ms RADIOLOG Y RESULTS QRS Duration 82 ms RADIOLO GY RESULTS QT 414 ms RADIOLOGY RESULTS QTc 477 ms RADIOLOGY RESULTS P Waelder 48 degrees RADIOLOGY RESULTS R AXIS 58 degrees RADIOLOGY RESULTS T Waelder 48 degrees RADIOLOGY RESULTS Interpretation ECG Sinus rhythm Normal ECG No previous ECGs available Unconfirmed report - interpretation of this ECG is computer generated - see medical record for final interpretation Confirmed by - EMERGENCY ROOM, PHYSICIAN ([id number]), editor publications TATA CRUZ ([id number]) on 11/15/2024 2:28:14 PM RADIOLOGY RESULTS 11/15/2024 11:3 1 AM BASE FILLER 11/15/2024 2:28 PM BASE FILLER Ankit Bailey MD ECG ORDERABLES Edited Result [...] For 1 dose $Given 11/15/2024 1:48 PM BASE FILLER 25 mg haloperidol lactate (HALDOL) injection 2.5 mg 2.5 mg, Intravenous, ONCE, Administer over 1 Minutes, On [place] 11/15/24 at 1325, For 1 dose $Given 11/15/2024 1:48 PM BASE FILLER 2.5 mg ketorolac (TORADOL) injection 15 mg [...] to 2 minutes. $Given 11/15/2024 11:44 AM BASE FILLER 15 mg lactated ringers BOLUS 1,000 mL Intravenous, 1,000 mL, ONCE, at 1,000 mL/hr, Administer over 1 Hours, On [facility] 11/15/24 at 1115, For 1 dose $New Bag 11/15/2024 11:45 AM BASE FILLER 1,000 mLs 1000 mL/hr lactated ringers BOLUS 1,000 mL Intravenous, 1,000 mL, ONCE, at 1,000 mL/hr, Administer over 1 Hours, On [facility] 11/15/24 at 1325, For 1 dose $New Bag 11/15/2024 1:48 PM BASE FILLER 1,000 mLs 1000 mL/hr ondansetron (ZOFRAN ODT) ODT tab 4 mg 4 mg, Oral, ONCE, On [facility] 11/15/24 at 1735, For 1 dose, With dry hands, peel back foil backing and gently remove tablet. Do not push oral disintegrating tablet through foil backing. Administer immediately on tongue and oral disintegrating tablet dissolves in seconds, then swallow with saliva. Liquid not required. $Given 11/15/2024 5:40 PM BASE FILLER 4 mg ondansetron (ZOFRAN) injection 4 mg 4 mg, Intravenous, ONCE, Administer over 2-5 Minutes, On [place] 11/15/24 at 1115, For 1 dose $Given 11/15/2024 11:44 AM BASE FILLER 4 mg ondansetron (ZOFRAN) injection 4 mg 4 mg, Intravenous, ONCE, Administer over 2-5 Minutes, On [place] 11/15/24 at 1255, For 1 dose $Given 11/15/2024 12:52 PM BASE FILLER 4 mg documented in this encounter Active and Recently Administered Medications Times are shown in BASE FILLER. Scheduled Medication Order 11/13/2024 11/14/2024 11/15/2024 diphenhydrAMINE [...] Out COVID-19 11/15/2024 11/15/2024 11/15/2024 1:41 PM BASE FILLER Assessment Noted Time PHQ-9 Depression Total Score: 10 024 10:15 AM CDT documented as of this encounter Care Teams Operator Automated Process Relationship Specialty Start Date End Date No Ref-Primary, Physician PCP - General 07/04/19 documented as of this encounter
[2024-12-13 00:10] VITALS: BP 136/102; PULSE 102; RESP 20; TEMP 37.2; O2SAT 94
[2024-12-13 01:26] VITALS: O2SAT 93
[2024-12-13] MEDS: ONDANSETRON 2 MG/ML inj 4 MG IVP (01:35)
[2024-12-13] MEDS: OLANZapine 5 MG/ML inj IVP (01:40)
[2024-12-13] MEDS: LACTATED RINGERS 1000 ML 1,000 ML IV (01:40)
--- NOTE | 2024-12-13 01:41 | ED.GENADULT ---
HPI - General Adult General Chief complaint: Nausea/Vomiting Stated complaint: Vomiting Time Seen by Provider: 12/13/24 01:19 Source: patient History of Present Illness HPI narrative: 18-year-old female presents the emergency department for the 2nd time in 40 hours for evaluation of recurrent vomiting. Improved with hot showers. Diagnosis of cannabis induced cyclic vomiting syndrome was made by Dr. Tian mejia. Notes reviewed. No blood workup was performed. She improved on IV fluid, Haldol and Zofran. She reports that she has not used any cannabis products for 3 or 4 days now and does not think that our diagnosis is correct because she has been off of the medication and her symptoms have not resolved. She gives a very clear history of bouts of these episodes every few months initially that last for 2-5 days and they are increasing in frequency as she ages. She has been using daily marijuana for years. Denies any other recreational drug use. No trauma or injury. No bloody stools. No hematemesis. She can hold down small amounts of fluid but has been able to tolerate food for the last couple of days. Has not seen a primary care provider or GI specialist for this. Reports history of depression anxiety. Medications reviewed. No known drug allergies. Regular cannabis user. Denies other illicit substances. ROS is notable for the GI symptoms only, otherwise denies times 12 systems. Related Data Home Medications ?Medication ?Instructions ?Recorded ?Confirmed aripiprazole IM 12/11/24 Previous Rx's ?Medication ?Instructions ?Recorded olanzapine 10 mg tablet (Zyprexa) 10 mg PO QHS PRN #30 tabs 12/13/24 ondansetron 4 mg disintegrating 4 mg PO Q8H PRN nausea and 12/13/24 tablet vomiting #20 tabs Allergies Allergy/AdvReac Type Severity Reaction Status Date / Time No Known Drug Allergies Allergy Verified 12/11/24 17:14 [facility] Social History Smoking Status: Never smoker Do you use any of these nicotine containing products: None How often do you have a drink containing alcohol: monthly or less How often do you have six or more drinks on one occasion: Never AUDIT-C Alcohol total score: 1 Non-prescribed substance use: marijuana (any form) service: No Exam Const: Vital Signs, click to edit/add: Vital Signs - 24 hr 12/13/24 00:10 12/13/24 01:26 Temperature 99.0 F Pulse Rate [Pulse Oximeter] 102 H Respiratory Rate 20 Blood Pressure [Ri ght Upper Arm] 136/102 H Pulse Oximetry 94 93 Oxygen Delivery Me thod Room Air Documenting provider has reviewed patient's vital signs: yes Common normals: no apparent distress and alert General appearance: cooperative HENMT: Common normals: normocephalic and moist oral mucous membranes Head and scalp: normocephalic Face and sinus: normal facial exam Throat: posterior oropharynx normal Eye: General eye: normal appearance of both eyes Neck & C-Spine: Common normals: full ROM and no lymphadenopathy Resp: Common normals: normal respiratory effort, no use of accessory muscles and clear to auscultation bilaterally Effort & inspection: able to speak in complete sentences Auscultation: clear to auscultation bilaterally Cardio: Common normals: regular rate, regular rhythm, S1 normal heart sound, S2 normal heart sound and no murmurs Rate: regular rate Rhythm: regular rhythm Heart sounds: S1 normal and S2 normal Extremity: Common normals: normal to inspection Neuro: Sensorium/orientation: alert Speech: speech normal Psych: Appearance: grossly normal Insight: limited Judgement: limited Other: Very casually dressed. Does not appear acutely ill. Skin: Common normals: no rashes or lesions noted General skin exam: no rashes or lesions noted Course Course ED Course: Counseled patient on findings and plan. I do not recommend extensive blood work and further workup. Notes from previous visit reviewed. Excellent prior response to Haldol and fluids. We spent some time discussing the typical pathogenesis of cannabis induced cyclic vomiting syndrome. Stressed the importance of cannabinoid abstinence for at least 6 weeks. Stressed that it is important she voided in all forms not just smoked, and avoidance of not just THC but cannabinoid products as well. Prescription given for Zyprexa 10 mg at bedtime to help prevent symptoms as well as Zofran. We discussed that Zofran alone is not typically very effective for this condition but can have some benefit when combined with the Zyprexa. Continue to push fluids. Encouraged her to try some oral Prilosec to help with stomach discomfort. Office visit follow-up if symptoms have not improved with 6 weeks of cannabinoid abstinence. Encouraged GI follow-up only if she has been abstinent for at least 6 weeks and is still symptomatic. Reevaluation(s) Time of Reevaluation #1: 02:26 Reevaluation #1: Re-evaluated patient. She is sleeping but arouses easily to voice. She has had no further vomiting and has tolerated some sips of water. She will be discharged. She says that no one can come pick her up until 7. Based on acuity and needs of the emergency department, she will be discharged to wait in the lobby. Vital Signs Vital signs: Initial Vital Signs Temperature 99.0 F 12/13/24 00:10 Temperature Source Temporal Artery Scan 12/13/24 00:10 Pulse Rate 102 H 12/13/24 00:10 Respiratory Rate 20 12/13/24 00:10 Blood Pressure 136/102 H 12/13/24 00:10 Blood Pressure Mean 113 H 12/13/24 00:10 Blood Pressure Position Sitting 12/13/24 00:10 Pulse Oximetry 94 12/13/24 00:10 Oxygen Delivery Method Room Air 12/13/24 00:10 Vital Signs Temperature 99.0 F 12/13/24 00:10 Pulse Rate 102 H 12/13/24 00:10 Respiratory Rate 20 12/13/24 00:10 Blood Pressure 136/102 H 12/13/24 00:10 Pulse Oximetry 94 12/13/24 00:10 Oxygen Delivery Method Room Air 12/13/24 00:10 Temperature 99.0 F 12/13/24 00:10 Pulse Rate 102 H 12/13/24 00:10 Respiratory Rate 20 12/13/24 00:10 Blood Pressure 136/102 H 12/13/24 00:10 Pulse Oximetry 93 12/13/24 01:26 Oxygen Delivery Method Room Air 12/13/24 00:10 Medications Administered Medications: Discontinued Medications Generic Name Dose Route Start Last Admin Trade Name Freq PRN Reason Stop Dose Admin Lactated Ringer's 1,000 mls @ 1,000 mls/hr 12/13/24 01:21 12/13/24 01:40 Lactated Ringers 1000 Ml IV 12/13/24 02:20 1,000 mls/hr .Q1H ONE Administration Olanzapine 5 mg 12/13/24 01:21 12/13/24 01:40 Olanzapine 5 Mg/Ml Inj IVP 02/27/25 01:22 5 mg ONCE ONE Administration Ondansetron HCl 4 mg 12/13/24 01:21 12/13/24 01:35 Ondansetron 2 Mg/Ml Inj IVP 12/13/24 01:22 4 mg ONCE ONE Administration Discharge Plan Discharge Clinical Impression: Cannabinoid hyperemesis syndrome Patient Disposition: Home w/ Parent or Adult Condition: Stable Instructions: Cyclic Vomiting Syndrome (ED) Additional Instructions: As we discussed, your symptoms are consistent with cannabis induced cyclic vomiting syndrome. Unfortunately this is a very common condition that happens in young women disproportionately to other groups. It does not start within the 1st few months of use but rather after several years of use. It is characterized by improvement with hot showers, feelings of normal with periods of time where there is severe vomiting that does not respond to typical anti nausea medicines and typically last for 3-7 days per cycle. Unfortunately, these episodes become more severe, frequent and intense with age if you continue to use any cannabis containing products. The only solution is to stop using those products entirely for at least 4-6 weeks. There is benefit to a product called Zyprexa also known as olanzapine which is an antipsychotic but does have good efficacy for helping reduce the intensity of the symptoms. I would like the to take this medication once nightly for at least the next week. You can go off of it once you are feeling well in you may restart it if your symptoms return. Remember that there is no medication that is going to completely eliminate these spells other than complete elimination of cannabis containing products. The workup in terms of blood work that we do in the emergency department is not sufficient to diagnose this condition. There is no specific blood test for this. In the ED I can only workup severe infections, pancreatitis and severe liver disease none of which is evident on your exam today. Blood work will not help this make this diagnosis. If you completely eliminate cannabis products for 6 weeks and are still symptomatic, I would recommend that you make a follow-up appointment with her primary care provider or a GI specialist. We discussed [facility] as a potential option for you. They do have an office in [place]. Remember that it is not helpful to go to that appointment unless you have been completely abstinent from cannabis products for at least 6 weeks. I have sent a prescription for the Zyprexa to the pharmacy. I have also sent some anti nausea medicine called ondansetron also known as Zofran. I find that the anti nausea medicine does not work well alone for this condition but can be helpful in combination with the Zyprexa. He is return to the emergency department if you have severe persistent GI bleeding, persistent fevers over 100.4 or have been unable to tolerate even any sips of water for over 48 hours. Your cleared to return to work and or school duties at this time. Activity Level: No Restrictions Discharge Diet: Regular Prescriptions: New olanzapine [Zyprexa] 10 mg tablet 10 mg PO QHS PRNQty: 30 0RF ondansetron 4 mg tablet,disintegrating 4 mg PO Q8H PRN (Reason: nausea and vomiting) Qty: 20 1RF No Action aripiprazole [Abilify Maintena] IM Follow Up/Referrals: Provider,Not a Local [Primary Care Provider] - Stand Alone Forms: MyHealth Info Instructions
--- OUTSIDE RECORDS SUMMARY | 2024-12-13 01:51 | XMS_ITS | Encounter Summary ---
Author Organization [place] Address [facility] [place] [address] Care Team Providers Care Foot Miter Operator Name Role Phone No Ref-Primary, Physician Primary Care Provider Reason for Visit * Reason Onset Date Comments Outpatient 07/04/2019 Encounter Details Date Type Department Care Team ([facility] Contact Info) Description 07/04/2019 Telephone [facility] Behavioral Health Intake [address] [place] [id number] Generic, Behavioral Intake, Outpatient Social History Tobacco [...] CDT Intake left voicemail for Beth Nunez ([phone]) @ [facility] to request she contact [facility] and ask them to fax Rule 25 [...] helpful to have the Rule 25 that [facility] did. This client may benefit from having a Dual Diagnosis Assessment to better understand current mentalhealth, chemical health, dynamics in the home, motivation, safety, ect. Govind ----- Message ----- From: Juliette Bhakta Sent: 07/12/2019 11:57 AM CDT To: [facility] Subject: Adol Referral Rec'd fax from Ayana Delatorre ([phone]) @ [facility] via Raven Nunez ([phone]) @ [facility] of Individual Trmt Plan, Diagnostic Addendum, and SHARRI. Per previous intake note, pt is being referred to [facility]. ?? Referral has already been created. [...] Medications: will fax over with clinical ?? [facility] did Rule 25. No prior tx No other legal ?? Doing pretty well in school. Contact with grandparents not parents. ?? Restraining order on Dad - No contact. Be [place] ?? Yessina will fax over clinical. [facility] * Telephone Encounter - Juliette Bhakta - 07/12/2019 12:38 PM CDT Rec'd fax from Riana (([phone]) @ [facility] via Raven Nunez ([phone])@ [facility] of Child/Adol DA. Faxed to program and sent mssg via pool. Filed with pt's other clinical. * Telephone Encounter - Juliette Bhakta - 07/12/2019 11:41 AM CDT Rec'd fax from Ayana Delatorre ([phone]) @ [facility] via Raven Nunez ([phone]) @ [facility] of Individual Trmt Plan, Diagnostic Addendum, and SHARRI. Per previous intake note, pt is being referred to [facility]. Referral has already been created. Faxed to program and sent mssg via pool Filed * Telephone Encounter - Vilma Casanova - 07/11/2019 3:17 PM CDT Received call from Rosalinda, painting supervisor at [facility]. She is referring to [facility]. She will fax over DA and cd [...] Medications: will fax over with clinical [facility] did Rule 25. No prior tx No [...] Out COVID-19 12/08/2023 12/08/2023 12/09/2023 11:33 AM PATIENT CARE TECHNICIAN INSTRUCTOR Rule Out COVID-19 11/15/2024 11/15/2024 11/15/2024 1:41 PM PATIENT CARE TECHNICIAN INSTRUCTOR documented as of this encounter Care Teams Foot Miter Operator Relationship Specialty Start Date End Date No Ref-Primary, Physician PCP - General 07/04/19 documented as of this encounter
--- OUTSIDE RECORDS SUMMARY | 2024-12-13 01:51 | XMS_ITS | Encounter Summary ---
Author Organization [facility] Address [address] [place] [address]. [place] [address] Care Team Providers Care Aerial Lineman Name Role Phone No Ref-Primary, Physician Primary Care Provider Encounter Details Date Type Department Care Team (Late st Contact Info) Description 05/29/2024 [facility] Medical Advice [facility] - Behavioral Service Line [address] [place] [phone] Cate Jackson Social History Tobacco Use Types Packs/Day Years Used Date Smoking Tobacco: Never Smokeless Tobacco: Never Alcohol Use Standard Drinks/Week Comments Not Currently 0 (1 standard drink = 0.6 oz pur e alcohol) stopped for PHQ-2 Answer Date Recorded PHQ-2 Score 3 05/21/2024 [place] Depression Scale Answer Date Recorded Last EPDS [...] Out COVID-19 11/15/2024 11/15/2024 11/15/2024 1:41 PM SUPPORTIVE EMPLOYMENT CASE MANAGER Assessment Noted Time PHQ-9 Depression Total Score: 14 024 10:35 AM CDT documented as of this encounter Care Teams Aerial Lineman Relationship Specialty Start Date End Date No Ref-Primary, Physician PCP - General 07/04/19 documented as of this encounter
--- OUTSIDE RECORDS SUMMARY | 2024-12-13 01:51 | XMS_ITS | Encounter Summary ---
Author Organization [place] Address [facility] [place] [address] Care Team Providers Care Surface Supply Breathing Apparatus Name Role Phone No Ref-Primary, Physician Primary Care Provider Encounter Details Date Type Department Care Team (Late st Contact Info) Description 06/15/2024 [facility] Medical Advice [facility] [address] [address] [place] [address] Jazmin Conway, OFFSET PRINTING OPERATOR Social History Tobacco Use Types Packs/Day Years Used Date Smoking Tobacco: Never Smokeless Tobacco: Never Alcohol Use Standard Drinks/Week Comments Not Currently 0 (1 standard drink = 0.6 oz pur e alcohol) stopped for PHQ-2 Answer Date Recorded PHQ-2 Score 2 06/07/2024 [place] Depression Scale Answer Date Recorded Last EPDS [...] Out COVID-19 11/15/2024 11/15/2024 11/15/2024 1:41 PM JOURNAL ENTRY AUDIT CLERK Assessment Noted Time PHQ-9 Depression Total Score: 10 024 10:15 AM CDT documented as of this encounter Care Teams Surface Supply Breathing Apparatus Relationship Specialty Start Date End Date No Ref-Primary, Physician PCP - General 07/04/19 documented as of this encounter
--- OUTSIDE RECORDS SUMMARY | 2024-12-13 01:51 | XMS_ITS | Encounter Summary ---
Author Organization [place] Address [facility] [place] [address] Care Team Providers Care Roofing Plant Supervisor Name Role Phone No Ref-Primary, Physician Primary Care Provider Encounter Details Date Type Department Care Team (Late st Contact Info) Description 05/30/2024 [facility] Treatment Plan [facility] [address] [address] [place] [address] Jazmin Conway, HEALTH CARE MANAGER Social History Tobacco Use Types Packs/Day Years Used Date Smoking Tobacco: Never Smokeless Tobacco: Never Alcohol Use Standard Drinks/Week Comments Not Currently 0 (1 standard drink = 0.6 oz pur e alcohol) stopped for PHQ-2 Answer Date Recorded PHQ-2 Score 3 05/21/2024 [facility] Depression Scale Answer Date Recorded Last EPDS [...] 06/04/2024 at 12:09 PM * Jazmin Conway, [facility] - 05/30/2024 8:16 AM CDT Individualized [...] support people in my treatment: Just my geriatric social worker and my foster mom. Please note we [...] DT 1: Justus Pelayo MD; Jazmin Conway [facility]; Ivory Lundberg [facility]; Olga Lidia Siddiqui, OTR/L; Digna Goncalves [...] record. Name: Signature: Date: Gifty Pelayo MD Psychiatrist/Combination Presser NOTE: Patient signatures are completed manually and scanned into the electronic medical record. SeeMedia tab in [employer]. * Jazmin Conway LICSW - 05/30/2024 8:16 [...] Medications: (include name, dose, and frequency) SEE [facility] DISCHARGE PLAN / RECOMMENDATIONS TO MANAGE SYMPTOMS AND PREVENT RELAPSE: Follow up with your providers and appointments. Next Level of Care / Frequency: individual therapy at clinic with provider. Next appointment: Patient committed to scheduling Follow up with the following resources and/or community supports: Disability Services at [facility] Report symptoms and significant changes to [...] listed below: Crisis Resources: Suicide Prevention Lifeline: 3-696-406-PHER (6451) Crisis Text Line Service (available 24 hours a day, 7 days a week): Text [place] to 507036 Call CRISIS (037425) from a cell phone to talk to a team of professionals who can help you. Crisis Services By County: Phone Number: Abd[place] [phone] [place] [phone] [place] (COPE) [phone] [place] [phone] [place] [phone] (after hours) Moustapha [phone] [place] [phone] The above discharge plan and recommendations were created to help you manage your mental health andto improve your overall functioning and well-being. Not following the above recommendations may result in an increase of symptoms, potential safety risks and a need for increased services. We appreciate the opportunity to work with you and sincerely thank you for choosing [facility]. Your treatment team: Justus Pelayo MD; MIREYA Stephens; MIREYA Parker; OLEGARIO Lyn; Olga Lidia Siddiqui OT Patient Signature: Date: documented in this encounter Plan of Treatment Not on file documented as of this encounter Visit Diagnoses Not on filedocumented in this encounter Additional Health Concerns Infection Onset Date Last Indicated Resolved Time Rule Out COVID-19 11/15/2024 11/15/2024 11/15/2024 1:41 PM SENIOR TECHNICAL ANALYST Assessment Noted Time PHQ-9 Depression Total Score: 14 024 10:35 AM CDT documented as of this encounter Care Teams Roofing Plant Supervisor Relationship Specialty Start Date End Date No Ref-Primary, Physician PCP - General 07/04/19 documented as of this encounter
--- OUTSIDE RECORDS SUMMARY | 2024-12-13 01:51 | XMS_ITS | Encounter Summary ---
Author Organization [facility] Address [address] [place] [address]. [place] [address] Care Team Providers Care Chain Splitter Name Role Phone No Ref-Primary, Physician Primary Care Provider Reason for Visit * Reason Comments Ingestion Encounter Details Date Type Department Care Team (Late st Contact Info) Description 11/15/2024 10:57 AM CNC MACHINIST 2ND SHIFT - 11/15/2024 5:48 PM [facility] Emergency Dept [address] [place] [address] Ankit Bailey MD [facility] [address] [address] Bob Torres MD [facility] [address], [address] [address] Nausea and vomiting, unspecified vomiting type; Nonspecific abdominal pain; Anxiety Discharge Disposition: Home or Self Care Social History Tobacco Use Types Packs/Day Years Used Date Smoking Tobacco: Never Smokeless Tobacco: Never Alcohol Use Standard Drinks/Week Comments Not Currently 0 (1 standard drink = 0.6 oz pur e alcohol) stopped for PHQ-2 Answer Date Recorded PHQ-2 Score 2 06/07/2024 [place] Depression Scale Answer Date Recorded Last EPDS [...] Comments Blood Pressure 134/87 11/15/2024 2:15 PM CNC MACHINIST 2ND SHIFT Pulse 78 11/15/2024 4:25 PM CNC MACHINIST 2ND SHIFT Temperature 36.2 C (97.1 F) 11/15/2024 11:21 AM CNC MACHINIST 2ND SHIFT Respiratory Rate 18 11/15/2024 11:21 AM CNC MACHINIST 2ND SHIFT Oxygen Saturation 97% 11/15/2024 4:25 PM CNC MACHINIST 2ND SHIFT Inhaled Oxygen Concentration - - Weight - - Height - - Body Mass Index - - documented in this encounter Discharge Instructions * Attachments The following attachments cannot be sent through Care Everywhere. * Abdominal Pain (Azerbaijani) * Nausea and Vomiting (Azerbaijani) documented in this encounter Medications at Time [...] arrives via ems- [facility] she is homeless living in her [...] WDL WDL Cardiac WDL Cardiac WDL WDL MACHINIST 2ND SHIFT * Ankit Bailey MD - 11/15/2024 11:00 [...] has been living in her car in [place] and adds that she is unsure when [...] Urine Negative Ketones Urine 40 (*) Specific [place] Urine 1.017 Blood Urine Negative pH Urine [...] Pressure Ventricular Rate 80 Atrial Rate 80 FL Interval 144 QRS Duration 82 QT 414 QTc 477 P [place] 48 R AXIS 58 T [place] 48 Interpretation ECG Sinus rhythm Normal ECG No previous ECGs available Unconfirmed report - interpretation of this ECG is computer generated - see medical record for final interpretation Confirmed by - EMERGENCY ROOM, PHYSICIAN ([id number]), map editor TATA CRUZ ([id number]) on 11/15/2024 2:28:14PM Independent Interpretation None ED [...] Course ED Course as of 11/15/24 1555 [facility] Nov 15, 2024 1109 I obtained history and examined the patient as noted above. 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 I do [...] to me. Ankit Bailey MD 11/15/24 1556 MACHINIST 2ND SHIFT * Digna Nichols RN - 11/15/2024 10:57 AM CST Bed: ED06 Expected date: Expected time: Means of arrival: Comments: Court 525 MACHINIST 2ND SHIFT documented in this encounter Plan of Treatment Not on file documented as of this encounter Procedures Procedure Name Priority Date/Time Associated Diagnosis Comments ROUTINE UA WITH MICROSCOPIC STAT 11/15/2024 1:43 PM CNC MACHINIST 2ND SHIFT CBC WITH PLATELETS AND DIFFERENTIAL STAT 11/15/2024 11:49 AM CNC MACHINIST 2ND SHIFT INFLUENZA A/B, RSV AND SARS-COV2 PCR STAT 11/15/2024 11:49 AM CNC MACHINIST 2ND SHIFT CBC WITH PLATELETS & DIFFERENTIAL STAT 11/15/2024 11:49 AM CNC MACHINIST 2ND SHIFT LIPASE STAT 11/15/2024 11:49 AM CNC MACHINIST 2ND SHIFT HEPATIC FUNCTION PANEL STAT 11/15/2024 11:49 AM CNC MACHINIST 2ND SHIFT HCG QUALITATIVE STAT 11/15/2024 11:49 AM CNC MACHINIST 2ND SHIFT ETHYL ALCOHOL LEVEL STAT 11/15/2024 1 1:49 AM CNC MACHINIST 2ND SHIFT BASIC METABOLIC PANEL STAT 11/15/2024 11:49 AM CNC MACHINIST 2ND SHIFT EKG 12-LEAD, TRACING ONLY STAT 11/15/2024 11:31 AM CNC MACHINIST 2ND SHIFT documented in this encounter Results * (ABNORMAL) UA with Microscopic (11/15/2024 1:43 PM CNC MACHINIST 2ND SHIFT) Color Urine Straw Colorless, Straw, Light Yellow, Yellow 11/15/2024 2:07 PM CNC MACHINIST 2ND SHIFT LABORATORY Appearance Urine Clear Clear 11/15/19 25 2:07 PM CNC MACHINIST 2ND SHIFT LABORATORY Glucose Urine 100(A) Negative mg/dL 11/15/2024 2:07 PM CNC MACHINIST 2ND SHIFT LABORATORY Bilirubin Urine Negative Negative 2:07 PM CNC MACHINIST 2ND SHIFT LABORATORY Ketones Urine 40(A) Negative mg/dL 11/15/2024 2:07 PM CNC MACHINIST 2ND SHIFT LABORATORY Specific [place] Urine 1.017 1.003 - 1.035 11/15/2024 2:07 PM CNC MACHINIST 2ND SHIFT LABORATORY Blood Urine Negative Negative 11/15/2024 2:07 PM CNC MACHINIST 2ND SHIFT LABORATORY pH Urine 7.0 5.0 - 7.0 11/15/2024 2:07 PM CNC MACHINIST 2ND SHIFT LABORATORY Protein Albumin Urine Negative Negative mg/dL 11/15/2024 2:07 PM CNC MACHINIST 2ND SHIFT LABORATORY Urobilinogen Urine Normal Normal, 2.0 mg/dL 11/15/2024 2:07 PM CNC MACHINIST 2ND SHIFT LABORATORY Nitrite Urine Negative Negative 11/15/2024 2:07 PM CNC MACHINIST 2ND SHIFT LABORATORY Leukocyte Esterase Urine Negative Negative 11/15/2024 2:07 PM CNC MACHINIST 2ND SHIFT [facility] Mucus Urine Present(A) None Seen /LPF 11/15/2024 2:07 PM CNC MACHINIST 2ND SHIFT [facility] RBC Urine 1 <=2 /HPF 11/15/2024 2:07 PM CNC MACHINIST 2ND SHIFT [facility] WBC Urine <1 <=5 /HPF 11/15/2024 2:07 PM CNC MACHINIST 2ND SHIFT [facility] Squamous Epithelials Urine 1 <=1 /HPF 11/15/2024 2:07 PM CNC MACHINIST 2ND SHIFT [facility] Urine MID-STREAM URINE SPECIMEN / Unknown Non-blood Collection / Unknown 11/15/2024 1:43 PM CNC MACHINIST 2ND SHIFT 11/15/2024 1:52 PM CNC MACHINIST 2ND SHIFT us Ankit Bailey MD LAB - URINE ORDERABLES Final Result [facility] LABORAT[facility] [address] [facility] Lab (1st floor, no room number) [place] [address], [facility] * (ABNORMAL) CBC with platelets and differential (11/15/2024 11:49 AM CNC MACHINIST 2ND SHIFT) WBC Count 15.6(H) 4.0 - 11.0 10e3/uL 11/15/2024 12:32 PM CNC MACHINIST 2ND SHIFT [facility] RBC Count 4.44 3.80 - 5.20 10e6/uL 11/15/2024 12:32 PM CNC MACHINIST 2ND SHIFT [facility] Hemoglobin 13.8 11.7 - 15.7 g/dL 11/15/2024 12:32 PM CNC MACHINIST 2ND SHIFT [facility] Hematocrit 41.7 35.0 - 47.0 % 11/15/2024 12:32 PM CNC MACHINIST 2ND SHIFT [facility] MCV 94 78 - 100 fL 11/15/2024 12:32 PM CNC MACHINIST 2ND SHIFT [facility] MCH 31.1 26.5 - 33.0 pg 11/15/2024 12:32 PM CNC MACHINIST 2ND SHIFT [facility] MCHC 33.1 31.5 - 36.5 g/dL 11/15/2024 12:32 PM CNC MACHINIST 2ND SHIFT [facility] RDW 12.6 10.0 - 15.0 % 11/15/2024 12:32 PM CNC MACHINIST 2ND SHIFT [facility] Platelet Count 330 150 - 450 10e3/uL 11/15/2024 12:32 PM CNC MACHINIST 2ND SHIFT [facility] % Neutrophils 64 % 11/15/2024 12:32 PM CNC MACHINIST 2ND SHIFT [facility] % Lymphocytes 28 % 11/15/2024 12:32 PM CNC MACHINIST 2ND SHIFT [facility] % Monocytes 6 % 11/15/2024 12:32 PM CNC MACHINIST 2ND SHIFT [facility] % Eosinophils 0 % 11/15/2024 12:32 PM CNC MACHINIST 2ND SHIFT [facility] % Basophils 0 % 11/15/2024 12:32 PM CNC MACHINIST 2ND SHIFT [facility] % Immature Granulocytes 1 % 11/15/2024 12:32 PM CNC MACHINIST 2ND SHIFT [facility] NRBCs per 100 WBC 0 <1 /100 025 12:32 PM CNC MACHINIST 2ND SHIFT [facility] Absolute Neutrophils 10.0(H) 1.6 - 8.3 10e3/uL 11/15/2024 12:32 PM CNC MACHINIST 2ND SHIFT [facility] Absolute Lymphocytes 4.3 0.8 - 5.3 10e3/uL 11/15/2024 12:32 PM CNC MACHINIST 2ND SHIFT [facility] Absolute Monocytes 1.0 0.0 - 1.3 10e3/uL 11/15/2024 12:32 PM CNC MACHINIST 2ND SHIFT [facility] Absolute Eosinophils 0.1 0.0 - 0.7 10e3/uL 11/15/2024 12:32 PM CNC MACHINIST 2ND SHIFT [facility] Absolute Basophils 0.1 0.0 - 0.2 10e3/uL 11/15/2024 12:32 PM CNC MACHINIST 2ND SHIFT [facility] Absolute Immature Granulocytes 0.2 <=0.4 10e3/uL 11/15/2024 12:32 PM CNC MACHINIST 2ND SHIFT [facility] Absolute NRBCs 0.0 10e3/uL 11/15/2024 12:32 PM CNC MACHINIST 2ND SHIFT [facility] Blood BLOOD SPECIMEN / Unknown Venipuncture / Unknown 11/15/2024 11:49 AM CNC MACHINIST 2ND SHIFT 11/15/2024 12:24 PM CNC MACHINIST 2ND SHIFT us Ankit Bailey MD LAB - BLOOD ORDERABLES Final Result [facility] [address] [facility] Lab (1st floor, no room number) [place] [address], [facility] * Influenza A/B, RSV and SARS-CoV2 PCR (COVID-19) Nasopharyngeal (11/15/2024 11:49 AM CNC MACHINIST 2ND SHIFT) [facility] Influenza A PCR Negative Negative 11/15/2024 1:41 PM CNC MACHINIST 2ND SHIFT [facility] Influenza B PCR Negative Negative 11/15/2024 1:41 PM CNC MACHINIST 2ND SHIFT [facility] RSV PCR Negative Negative 11/15/2024 1:41 PM CNC MACHINIST 2ND SHIFT [facility] SARS CoV2 PCR Negative Negative 11/15/2024 1:41 PM CNC MACHINIST 2ND SHIFT [facility] Comment:NEGATIVE: SARS-CoV-2 (COVID-19) RNA not detected, presumed negative. Swab NASOPHARYNGEAL STRUCTURE / Unknown Non-blood Collection / Unknown 11/15/2024 11:49 AM CNC MACHINIST 2ND SHIFT 11/15/2024 12:24 PM CNC MACHINIST 2ND SHIFT Narrative [facility] LAB[facility] - 11/15/2024 1:41 PM CNC MACHINIST 2ND SHIFT Testing was performed using the Xpert Xpress CoV2/Flu/RSV Assay on the [employer]Xpert Instrument. This test should be ordered for [...] management. This test was validated by the [facility]. These laboratories are certified under the Clinical Laboratory Improvement Amendments of 1988 (CLIA-88) as qualified to perfom high complexity laboratory testing. Ankit Bailey MD LAB - MICRO GENERAL ORD ERABLES Final Result LABORATORY [facility] [address] [facility] Lab (1st floor, no room number) [place] [address], [facility] * Alcohol level blood (11/15/2024 11:49 AM CNC MACHINIST 2ND SHIFT) Alcohol ethyl <0.01 <=0.01 g/dL 11/15/2024 12:54 PM CNC MACHINIST 2ND SHIFT LABORATORY Blood BLOOD SPECIMEN / Unknown Venipuncture / Unknown 11/15/2024 11:49 AM CNC MACHINIST 2ND SHIFT 11/15/2024 12:24 PM CNC MACHINIST 2ND SHIFT Ankit Bailey MD LAB - BLOOD ORDERABLES Final Result Performing Organization Address [facility]/ZIP Co de Phone Number [facility] [address] Lab (1st floor, no room number) [place] [phone] [place] [address] * HCG QUALitative (blood) (11/15/2024 11:49 AM CNC MACHINIST 2ND SHIFT) [facility] hCG Serum Qualitative Negative Negative KENA 11/15/2024 12:59 PM CNC MACHINIST 2ND SHIFT LABORATORY Comment:This test is for scr eening purposes. Results should be interpreted along with the clinical picture. Confirmation testing is available if warranted by ordering [id number], HCG Quantitative . Blood BLOOD SPECIMEN / Unknown Venipuncture / Unknown 11/15/2024 11:49 AM CNC MACHINIST 2ND SHIFT 11/15/2024 12:24 PM CNC MACHINIST 2ND SHIFT Ankit Bailey MD LAB - BLOOD ORDERABLES Final Result Performing Organization Address [facility] Co de Phone Number [facility] [address] Lab (1st floor, no room number) [place] [address] * Lipase (11/15/2024 11:49 AM CNC MACHINIST 2ND SHIFT) [facility] Lipase 14 13 - 60 U/L 11/15/2024 12:54 PM CNC MACHINIST 2ND SHIFT LABORATORY Blood BLOOD SPECIMEN / Unknown Venipuncture / Unknown 11/15/2024 11:49 AM CNC MACHINIST 2ND SHIFT 11/15/2024 12:24 PM CNC MACHINIST 2ND SHIFT Ankit Bailey MD LAB - BLOOD ORDERABLES Final Result Performing Organization Address City/[facility]/ZIP Co de Phone Number [facility] [address] Lab (1st floor, no room number) [place] [phone] [place] [address] * Hepatic function panel (11/15/2024 11:49 AM CNC MACHINIST 2ND SHIFT) [facility] Protein Total 6.9 6.4 - 8.3 g/dL 11/15/2024 12:54 PM CNC MACHINIST 2ND SHIFT [facility] Albumin 4.3 3.5 - 5.2 g/dL 11/15/2024 12:54 PM [facility] Bilirubin Total 0.2 <=1.2 mg/dL 11/15/2024 12:54 PM [facility] Alkaline Phosphatase 57 40 - 150 U/L 11/15/2024 12:54 PM [facility] AST 18 0 - 45 U/L 11/15/2024 12:54 PM [facility] ALT 21 0 - 50 U/L 11/15/2024 12:54 PM [facility] Bilirubin Direct <0.20 0.00 - 0.30 mg/dL 11/15/2024 12:54 PM [facility] Blood BLOOD SPECIMEN / Unknown Venipuncture / Unknown 11/15/2024 11:49 AM CNC MACHINIST 2ND SHIFT 11/15/2024 12:24 PM [facility] us Ankit Bailey MD LAB - BLOOD ORDERABLES Final Result LABORATORY [facility] [address] Lab (1st floor, no room number) [place] [address] * (ABNORMAL) Basic metabolic panel (11/15/2024 11:49 AM CNC MACHINIST 2ND SHIFT) Sodium 137 135 - 145 mmol/L 11/15/2024 12:54 PM [facility] Potassium 3.6 3.4 - 5.3 mmol/L 11/15/2024 12:54 PM [facility] Chloride 103 98 - 107 mmol/L 11/15/2024 12:54 PM [facility] Carbon Dioxide (CO2) 22 22 - 29 mmol/L 11/15/2024 12:54 PM [facility] Anion Gap 12 7 - 15 mmol/L 11/15/2024 12:54 PM [facility] Urea Nitrogen 10.2 6.0 - 20.0 mg/dL 11/15/2024 12:54 PM [facility] Creatinine 0.84 0.51 - 0.95 mg/dL 11/15/2024 12:54 PM [facility] GFR Estimate >90 >60 mL/min/1.7 3m2 11/15/2024 12:54 PM CNC MACHINIST 2ND SHIFT [facility] Comment:eGFR calculated 2020 CKD-EPI equation. Calcium 8.9 8.8 - 10.4 mg/dL 11/15/2024 12:54 PM CNC MACHINIST 2ND SHIFT LABORATORY Glucose 150(H) 70 - 99 mg/dL 11/15/2024 12:54 PM CNC MACHINIST 2ND SHIFT LABORATORY Blood BLOOD SPECIMEN / Unknown Venipuncture / Unknown 11/15/2024 11:49 AM CNC MACHINIST 2ND SHIFT 11/15/2024 12:24 PM CNC MACHINIST 2ND SHIFT Ankit Bailey MD LAB - BLOOD ORDERABLES Final Result [facility] [address] Lab (1st floor, no room number) [place] [address] * EKG 12 lead (11/15/2024 11:31 AM CNC MACHINIST 2ND SHIFT) Systolic Blood Pressure mmHg RADIOLOGY RESULTS Diastolic Blood Pressure mmHg RADIOLOGY RESULTS Ventricular Rate 80 BPM RAD IOLOGY RESULTS Atrial Rate 80 BPM RADIOLOG Y RESULTS FL Interval 144 ms RADIOLOG Y RESULTS QRS Duration 82 ms RADIOLO GY RESULTS QT 414 ms RADIOLOGY RESULTS QTc 477 ms RADIOLOGY RESULTS P [place] 48 degrees RADIOLOGY RESULTS R AXIS 58 degrees RADIOLOGY RESULTS T [place] 48 degrees RADIOLOGY RESULTS Interpretation ECG Sinus rhythm Normal ECG No previous ECGs available Unconfirmed report - interpretation of this ECG is computer generated - see medical record for final interpretation Confirmed by - EMERGENCY ROOM, PHYSICIAN ([id number]), map editor TATA CRUZ ([id number]) on 11/15/2024 2:28:14 PM RADIOLOGY RESULTS 11/15/2024 11:3 1 AM CNC MACHINIST 2ND SHIFT 11/15/2024 2:28 PM CNC MACHINIST 2ND SHIFT Ankit Bailey MD ECG ORDERABLES Edited Result [...] For 1 dose $Given 11/15/2024 1:48 PM CNC MACHINIST 2ND SHIFT 25 mg haloperidol lactate (HALDOL) injection 2.5 mg 2.5 mg, Intravenous, ONCE, Administer over 1 Minutes, On [place] 11/15/24 at 1325, For 1 dose $Given 11/15/2024 1:48 PM CNC MACHINIST 2ND SHIFT 2.5 mg ketorolac (TORADOL) injection 15 mg [...] to 2 minutes. $Given 11/15/2024 11:44 AM CNC MACHINIST 2ND SHIFT 15 mg lactated ringers BOLUS 1,000 mL Intravenous, 1,000 mL, ONCE, at 1,000 mL/hr, Administer over 1 Hours, On [facility] 11/15/24 at 1115, For 1 dose $New Bag 11/15/2024 11:45 AM CNC MACHINIST 2ND SHIFT 1,000 mLs 1000 mL/hr lactated ringers BOLUS 1,000 mL Intravenous, 1,000 mL, ONCE, at 1,000 mL/hr, Administer over 1 Hours, On [facility] 11/15/24 at 1325, For 1 dose $New Bag 11/15/2024 1:48 PM CNC MACHINIST 2ND SHIFT 1,000 mLs 1000 mL/hr ondansetron (ZOFRAN ODT) ODT tab 4 mg 4 mg, Oral, ONCE, On [facility] 11/15/24 at 1735, For 1 dose, With dry hands, peel back foil backing and gently remove tablet. Do not push oral disintegrating tablet through foil backing. Administer immediately on tongue and oral disintegrating tablet dissolves in seconds, then swallow with saliva. Liquid not required. $Given 11/15/2024 5:40 PM CNC MACHINIST 2ND SHIFT 4 mg ondansetron (ZOFRAN) injection 4 mg 4 mg, Intravenous, ONCE, Administer over 2-5 Minutes, On [place] 11/15/24 at 1115, For 1 dose $Given 11/15/2024 11:44 AM CNC MACHINIST 2ND SHIFT 4 mg ondansetron (ZOFRAN) injection 4 mg 4 mg, Intravenous, ONCE, Administer over 2-5 Minutes, On [place] 11/15/24 at 1255, For 1 dose $Given 11/15/2024 12:52 PM CNC MACHINIST 2ND SHIFT 4 mg documented in this encounter Active and Recently Administered Medications Times are shown in CNC MACHINIST 2ND SHIFT. Scheduled Medication Order 11/13/2024 11/14/2024 11/15/2024 diphenhydrAMINE [...] Out COVID-19 11/15/2024 11/15/2024 11/15/2024 1:41 PM CNC MACHINIST 2ND SHIFT Assessment Noted Time PHQ-9 Depression Total Score: 10 024 10:15 AM CDT documented as of this encounter Care Teams Chain Splitter Relationship Specialty Start Date End Date No Ref-Primary, Physician PCP - General 07/04/19 documented as of this encounter
--- OUTSIDE RECORDS SUMMARY | 2024-12-13 01:51 | XMS_ITS | Clinical Summary ---
Author Organization [place] Address [address] [place] [address]. [place] [address] Care Team Providers Care Investigations Director Name Role Phone No Ref-Primary, Physician Primary [...] Department Care Team Description 11/15/2024 10:57 AM PHOSPHATIC FERTILIZER SUPERVISOR - 11/15/2024 5:48 PM [facility] Emergency Dept [address] [place] [address] Ankit Bailey MD Peery, Stephen, MD Nausea [...] Answer Date Recorded PHQ-2 Score 2 06/07/2024 [place] Depression Scale Answer Date Recorded Last EPDS [...] Comments Blood Pressure 134/87 11/15/2024 2:15 PM PHOSPHATIC FERTILIZER SUPERVISOR Pulse 78 11/15/2024 4:25 PM PHOSPHATIC FERTILIZER SUPERVISOR Temperature 36.2 C (97.1 F) 11/15/2024 11:21 AM PHOSPHATIC FERTILIZER SUPERVISOR Respiratory Rate 18 11/15/2024 11:21 AM PHOSPHATIC FERTILIZER SUPERVISOR Oxygen Saturation 97% 11/15/2024 4:25 PM PHOSPHATIC FERTILIZER SUPERVISOR Inhaled Oxygen Concentration - - Weight 79.4 [...] UA WITH MICROSCOPIC STAT 11/15/2024 1:43 PM PHOSPHATIC FERTILIZER SUPERVISOR CBC WITH PLATELETS & DIFFERENTIAL STAT 11/15/2024 11:49 AM PHOSPHATIC FERTILIZER SUPERVISOR CBC WITH PLATELETS AND DIFFERENTIAL STAT 11/15/2024 11:49 AM PHOSPHATIC FERTILIZER SUPERVISOR INFLUENZA A/B, RSV AND SARS-COV2 PCR STAT 11/15/2024 11:49 AM PHOSPHATIC FERTILIZER SUPERVISOR ETHYL ALCOHOL LEVEL STAT 11/15/2024 1 1:49 AM PHOSPHATIC FERTILIZER SUPERVISOR HCG QUALITATIVE STAT 11/15/2024 11:49 AM PHOSPHATIC FERTILIZER SUPERVISOR LIPASE STAT 11/15/2024 11:49 AM PHOSPHATIC FERTILIZER SUPERVISOR HEPATIC FUNCTION PANEL STAT 11/15/2024 11:49 AM PHOSPHATIC FERTILIZER SUPERVISOR BASIC METABOLIC PANEL STAT 11/15/2024 11:49 AM PHOSPHATIC FERTILIZER SUPERVISOR EKG 12-LEAD, TRACING ONLY STAT 11/15/2024 11:31 AM PHOSPHATIC FERTILIZER SUPERVISOR CHLAMYDIA TRACHOMATIS/NEISSERIA GONORRHOEAE BY PCR STAT 07/15/2024 9:43 PM CDT HIV ANTIGEN ANTIBODY COMBO Add-On 08/15/2022 3:20 PM CDT from Last 3 Months or Most Recently Relevant to Health Maintenance Results * (ABNORMAL) UA with Microscopic (11/15/2024 1:43 PM PHOSPHATIC FERTILIZER SUPERVISOR) Color Urine Straw Colorless, Straw, Light Yellow, Yellow 11/15/2024 2:07 PM PHOSPHATIC FERTILIZER SUPERVISOR LABORATORY Appearance Urine Clear Clear 11/15/19 2:07 PM PHOSPHATIC FERTILIZER SUPERVISOR LABORATORY Glucose Urine 100(A) Negative mg/dL 11/15/2024 2:07 PM PHOSPHATIC FERTILIZER SUPERVISOR LABORATORY Bilirubin Urine Negative Negative 2:07 PM PHOSPHATIC FERTILIZER SUPERVISOR LABORATORY Ketones Urine 40(A) Negative mg/dL 11/15/2024 2:07 PM PHOSPHATIC FERTILIZER SUPERVISOR LABORATORY Specific [place] Urine 1.017 1.003 - 1.035 11/15/2024 2:07 PM PHOSPHATIC FERTILIZER SUPERVISOR LABORATORY Blood Urine Negative Negative 11/15/2024 2:07 PM PHOSPHATIC FERTILIZER SUPERVISOR LABORATORY pH Urine 7.0 5.0 - 7.0 11/15/2024 2:07 PM PHOSPHATIC FERTILIZER SUPERVISOR LABORATORY Protein Albumin Urine Negative Negative mg/dL 11/15/2024 2:07 PM PHOSPHATIC FERTILIZER SUPERVISOR LABORATORY Urobilinogen Urine Normal Normal, 2.0 mg/dL 11/15/2024 2:07 PM PHOSPHATIC FERTILIZER SUPERVISOR LABORATORY Nitrite Urine Negative Negative 11/15/2024 2:07 PM PHOSPHATIC FERTILIZER SUPERVISOR LABORATORY Leukocyte Esterase Urine Negative Negative 11/15/2024 2:07 PM PHOSPHATIC FERTILIZER SUPERVISOR LABORATORY Mucus Urine Present(A) None Seen /LPF 11/15/2024 2:07 PM PHOSPHATIC FERTILIZER SUPERVISOR LABORATORY RBC Urine 1 <=2 /HPF 11/15/2024 2:07 PM PHOSPHATIC FERTILIZER SUPERVISOR LABORATORY WBC Urine <1 <=5 /HPF 11/15/2024 2:07 PM PHOSPHATIC FERTILIZER SUPERVISOR LABORATORY Squamous Epithelials Urine 1 <=1 /HPF 11/15/2024 2:07 PM PHOSPHATIC FERTILIZER SUPERVISOR LABORATORY Urine MID-STREAM URINE SPECIMEN / Unknown Non-blood Collection / Unknown 11/15/2024 1:43 PM PHOSPHATIC FERTILIZER SUPERVISOR 11/15/2024 1:52 PM PHOSPHATIC FERTILIZER SUPERVISOR us Ankit Bailey MD LAB - URINE ORDERABLES Final Result LABORATORY [facility] Lab [address] Lab (1st floor, no room number) [place] [address] * (ABNORMAL) CBC with platelets and differential (11/15/2024 11:49 AM PHOSPHATIC FERTILIZER SUPERVISOR) WBC Count 15.6(H) 4.0 - 11.0 10e3/uL 11/15/2024 12:32 PM PHOSPHATIC FERTILIZER SUPERVISOR [facility] LABORATORY RBC Count 4.44 3.80 - 5.20 10e6/uL 11/15/2024 12:32 PM PHOSPHATIC FERTILIZER SUPERVISOR [facility] Hemoglobin 13.8 11.7 - 15.7 g/dL 11/15/2024 12:32 PM PHOSPHATIC FERTILIZER SUPERVISOR [facility] Hematocrit 41.7 35.0 - 47.0 % 11/15/2024 12:32 PM PHOSPHATIC FERTILIZER SUPERVISOR [facility] MCV 94 78 - 100 fL 11/15/2024 12:32 PM PHOSPHATIC FERTILIZER SUPERVISOR [facility] MCH 31.1 26.5 - 33.0 pg 11/15/2024 12:32 PM PHOSPHATIC FERTILIZER SUPERVISOR [facility] MCHC 33.1 31.5 - 36.5 g/dL 11/15/2024 12:32 PM PHOSPHATIC FERTILIZER SUPERVISOR [facility] RDW 12.6 10.0 - 15.0 % 11/15/2024 12:32 PM PHOSPHATIC FERTILIZER SUPERVISOR [facility] Platelet Count 330 150 - 450 10e3/uL 11/15/2024 12:32 PM PHOSPHATIC FERTILIZER SUPERVISOR [facility] % Neutrophils 64 % 11/15/2024 12:32 PM PHOSPHATIC FERTILIZER SUPERVISOR [facility] % Lymphocytes 28 % 11/15/2024 12:32 PM PHOSPHATIC FERTILIZER SUPERVISOR [facility] % Monocytes 6 % 11/15/2024 12:32 PM PHOSPHATIC FERTILIZER SUPERVISOR [facility] % Eosinophils 0 % 11/15/2024 12:32 PM PHOSPHATIC FERTILIZER SUPERVISOR [facility] % Basophils 0 % 11/15/2024 12:32 PM PHOSPHATIC FERTILIZER SUPERVISOR [facility] % Immature Granulocytes 1 % 11/15/2024 12:32 PM PHOSPHATIC FERTILIZER SUPERVISOR [facility] NRBCs per 100 WBC 0 <1 /100 025 12:32 PM PHOSPHATIC FERTILIZER SUPERVISOR [facility] Absolute Neutrophils 10.0(H) 1.6 - 8.3 10e3/uL 11/15/2024 12:32 PM PHOSPHATIC FERTILIZER SUPERVISOR [facility] Absolute Lymphocytes 4.3 0.8 - 5.3 10e3/uL 11/15/2024 12:32 PM PHOSPHATIC FERTILIZER SUPERVISOR [facility] Absolute Monocytes 1.0 0.0 - 1.3 10e3/uL 11/15/2024 12:32 PM PHOSPHATIC FERTILIZER SUPERVISOR [facility] Absolute Eosinophils 0.1 0.0 - 0.7 10e3/uL 11/15/2024 12:32 PM PHOSPHATIC FERTILIZER SUPERVISOR [facility] Absolute Basophils 0.1 0.0 - 0.2 10e3/uL 11/15/2024 12:32 PM PHOSPHATIC FERTILIZER SUPERVISOR [facility] Absolute Immature Granulocytes 0.2 <=0.4 10e3/uL 11/15/2024 12:32 PM PHOSPHATIC FERTILIZER SUPERVISOR [facility] Absolute NRBCs 0.0 10e3/uL 11/15/2024 12:32 PM PHOSPHATIC FERTILIZER SUPERVISOR LABORATORY Blood BLOOD SPECIMEN / Unknown Venipuncture / Unknown 11/15/2024 11:49 AM PHOSPHATIC FERTILIZER SUPERVISOR 11/15/2024 12:24 PM PHOSPHATIC FERTILIZER SUPERVISOR us Ankit Bailey MD LAB - BLOOD ORDERABLES Final Result LABORATORY [facility] Acute Care Lab [address] [facility] Lab (1st floor, no room number) [place] [address] * Influenza A/B, RSV and SARS-CoV2 PCR (COVID-19) Nasopharyngeal (11/15/2024 11:49 AM PHOSPHATIC FERTILIZER SUPERVISOR) [facility] Influenza A PCR Negative Negative 11/15/2024 1:41 PM PHOSPHATIC FERTILIZER SUPERVISOR [facility] Influenza B PCR Negative Negative 11/15/2024 1:41 PM PHOSPHATIC FERTILIZER SUPERVISOR [facility] RSV PCR Negative Negative 11/15/2024 1:41 PM PHOSPHATIC FERTILIZER SUPERVISOR LABORATORY SARS CoV2 PCR Negative Negative 11/15/2024 1:41 PM PHOSPHATIC FERTILIZER SUPERVISOR LABORATORY Comment:NEGATIVE: SARS-CoV-2 (COVID-19) RNA not detected, presumed negative. Swab NASOPHARYNGEAL STRUCTURE / Unknown Non-blood Collection / Unknown 11/15/2024 11:49 AM PHOSPHATIC FERTILIZER SUPERVISOR 11/15/2024 12:24 PM PHOSPHATIC FERTILIZER SUPERVISOR Narrative LABORATORY - 11/15/2024 1:41 PM PHOSPHATIC FERTILIZER SUPERVISOR Testing was performed using the Xpert Xpress CoV2/Flu/RSV Assay on the [employer] GeneXpert Instrument. This test should be ordered [...] management. This test was validated by the [facility]. These laboratories are certified under the Clinical Laboratory Improvement Amendments of 1988 (CLIA-88) as qualified to perfom high complexity laboratory testing. Ankit Bailey MD LAB - MICRO GENERAL ORD ERABLES Final Result [facility] [address] [facility] [facility] ([facility]st floor, no room number) [place] [address] * Lipase (11/15/2024 11:49 AM PHOSPHATIC FERTILIZER SUPERVISOR) Lipase 14 13 - 60 U/L 11/15/2024 12:54 PM PHOSPHATIC FERTILIZER SUPERVISOR LABORATORY Blood BLOOD SPECIMEN / Unknown Venipuncture / Unknown 11/15/2024 11:49 AM PHOSPHATIC FERTILIZER SUPERVISOR 11/15/2024 12:24 PM PHOSPHATIC FERTILIZER SUPERVISOR Ankit Bailey MD LAB - BLOOD ORDERABLES Final Result [facility] Lab [address] [facility] Lab (1st floor, no room number) [place] [address] * Hepatic function panel (11/15/2024 11:49 AM PHOSPHATIC FERTILIZER SUPERVISOR) Protein Total 6.9 6.4 - 8.3 g/dL 11/15/2024 12:54 PM PHOSPHATIC FERTILIZER SUPERVISOR [facility] LAB[facility]ATORY Albumin 4.3 3.5 - 5.2 g/dL 11/15/2024 12:54 PM PHOSPHATIC FERTILIZER SUPERVISOR LABORATORY Bilirubin Total 0.2 <=1.2 mg/dL 11/15/2024 12:54 PM PHOSPHATIC FERTILIZER SUPERVISOR [facility] Alkaline Phosphatase 57 40 - 150 U/L 11/15/2024 12:54 PM PHOSPHATIC FERTILIZER SUPERVISOR [facility] AST 18 0 - 45 U/L 11/15/2024 12:54 PM PHOSPHATIC FERTILIZER SUPERVISOR [facility] ALT 21 0 - 50 U/L 11/15/2024 12:54 PM PHOSPHATIC FERTILIZER SUPERVISOR [facility] Bilirubin Direct <0.20 0.00 - 0.30 mg/dL 11/15/2024 12:54 PM PHOSPHATIC FERTILIZER SUPERVISOR [facility] Blood BLOOD SPECIMEN / Unknown Venipuncture / Unknown 11/15/2024 11:49 AM PHOSPHATIC FERTILIZER SUPERVISOR 11/15/2024 12:24 PM PHOSPHATIC FERTILIZER SUPERVISOR Ankit Bailey MD LAB - BLOOD ORDERABLES Final Result [facility] Lab [address] [place] Lab (1st floor, no room number) [place] [phone] * HCG QUALitative (blood) (11/15/2024 11:49 AM PHOSPHATIC FERTILIZER SUPERVISOR) hCG Serum Qualitative Negative Negative KENA 11/15/2024 12:59 PM PHOSPHATIC FERTILIZER SUPERVISOR [facility] LAB[facility]AT[facility] Comment:This test is for scr eening purposes. Results should be interpreted along with the clinical picture. Confirmation testing is available if warranted by ordering [id number], HCG Quantitative . Blood BLOOD SPECIMEN / Unknown Venipuncture / Unknown 11/15/2024 11:49 AM PHOSPHATIC FERTILIZER SUPERVISOR 11/15/2024 12:24 PM PHOSPHATIC FERTILIZER SUPERVISOR Ankit Bailey MD LAB - BLOOD ORDERABLES Final Result [facility] [address] Lab (1st floor, no room number) [place] [address] * Alcohol level blood (11/15/2024 11:49 AM PHOSPHATIC FERTILIZER SUPERVISOR) Alcohol ethyl <0.01 <=0.01 g/dL 11/15/2024 12:54 PM PHOSPHATIC FERTILIZER SUPERVISOR [facility] LAB[facility]ATORY Blood BLOOD SPECIMEN / Unknown Venipuncture / Unknown 11/15/2024 11:49 AM PHOSPHATIC FERTILIZER SUPERVISOR 11/15/2024 12:24 PM PHOSPHATIC FERTILIZER SUPERVISOR us Ankit Bailey MD LAB - BLOOD ORDERABLES Final Result LABORATORY [facility] [address] Lab (1st floor, no room number) [place] [address] * (ABNORMAL) Basic metabolic panel (11/15/2024 11:49 AM PHOSPHATIC FERTILIZER SUPERVISOR) [facility] Sodium 137 135 - 145 mmol/L 11/15/2024 12:54 PM [facility] Potassium 3.6 3.4 - 5.3 mmol/L 11/15/2024 12:54 PM [facility] Chloride 103 98 - 107 mmol/L 11/15/2024 12:54 PM [facility] Carbon Dioxide (CO2) 22 22 - 29 mmol/L 11/15/2024 12:54 PM [facility] Anion Gap 12 7 - 15 mmol/L 11/15/2024 12:54 PM [facility] Urea Nitrogen 10.2 6.0 - 20.0 mg/dL 11/15/2024 12:54 PM [facility] Creatinine 0.84 0.51 - 0.95 mg/dL 11/15/2024 12:54 PM [facility] GFR Estimate >90 >60 mL/min/1.7 3m2 11/15/2024 12:54 PM [facility] Comment:eGFR calculated [facility] 2020 CKD-EPI equation. Calcium 8.9 8.8 - 10.4 mg/dL 11/15/2024 12:54 PM [facility] Glucose 150(H) 70 - 99 mg/dL 11/15/2024 12:54 PM [facility] Blood BLOOD SPECIMEN / Unknown Venipuncture / Unknown 11/15/2024 11:49 AM PHOSPHATIC FERTILIZER SUPERVISOR 11/15/2024 12:24 PM PHOSPHATIC FERTILIZER SUPERVISOR Ankit Bailey MD LAB - BLOOD ORDERABLES Final Result LABORATORY [facility] [address] Lab (1st floor, no room number) [place] [address], [facility] * EKG 12 lead (11/15/2024 11:31 AM PHOSPHATIC FERTILIZER SUPERVISOR) Systolic Blood Pressure mmHg RADIOLOGY RESULTS Diastolic Blood Pressure mmHg RADIOLOGY RESULTS Ventricular Rate 80 BPM RAD IOLOGY RESULTS Atrial Rate 80 BPM RADIOLOG Y RESULTS NV Interval 144 ms RADIOLOG Y RESULTS QRS Duration 82 ms RADIOLO GY RESULTS QT 414 ms RADIOLOGY RESULTS QTc 477 ms RADIOLOGY RESULTS P [place] 48 degrees RADIOLOGY RESULTS R AXIS 58 degrees RADIOLOGY RESULTS T [place] 48 degrees RADIOLOGY RESULTS Interpretation ECG Sinus rhythm Normal ECG No previous ECGs available Unconfirmed report - interpretation of this ECG is computer generated - see medical record for final interpretation Confirmed by - EMERGENCY ROOM, PHYSICIAN ([id number]), commissioning editor TATA CRUZ ([id number]) on 11/15/2024 2:28:14 PM RADIOLOGY RESULTS 11/15/2024 11:3 1 AM PHOSPHATIC FERTILIZER SUPERVISOR 11/15/2024 2:28 PM PHOSPHATIC FERTILIZER SUPERVISOR us Ankit Bailey MD ECG ORDERABLES Edited Result - Final RADIOLOGY RESULTS * Chlamydia trachomatis/Neisseria gonorrhoeae by PCR (07/15/2024 9:43 PM CDT) Chlamydia Trachomatis Negative Negative 07/16/2024 11:01 AM CDT [facility] Comment: Negative for C. trachomatis rRNA by retrimmer mediated amplification. A negative result by retrimmer mediated amplification does not preclude the presence of infection because results are dependent on proper and adequate collection, absence of inhibitors and sufficient rRNA to be detected. Neisseria gonorrhoeae Negative Negative 07/16/2024 11:01 AM CDT [facility] Comment:Negative for N. gono rrhoeae rRNA by retrimmer mediated amplification. A negative result by retrimmer mediated amplification does not preclude the presence of C. trachomatis infection because results are dependent on proper and adequate collection, absence of inhibitors and sufficient rRNA to be detected. Swab CERVIX UTERI STRUCTURE / Unknown Non-blood Collection / Unknown 07/15/2024 9:43 PM CDT 07/15/2024 9:47 PM CDT us Paul Bryant MD LAB - MICRO GENERAL MIKE OSULLIVAN Final Result [facility] Inf. Diseases Diag. Lab [address] [facility] [address] [place] [address] * HIV Antigen Antibody Combo [...] [facility] SPECIALTY CORE/PROT/ENDO UM Specialty Core/Prot/Endo [address] [facility], Room [address] [phone] from Last 3 Months or Most Recently Relevant to Health Maintenance Insurance [employer] [place] [employer] [facility] [place]: [id number] [place] [phone] [place] [address] [facility] Address: [address] [place] [phone] Advance Directives For more information, please contact: [phone] * Full Code (Latest Code Status on [...] mileye nt/ legal decision maker Care Teams Investigations Director Relationship Specialty Start Date End Date No Ref-Primary, Physician PCP - General 07/04/19
--- OUTSIDE RECORDS SUMMARY | 2024-12-13 01:51 | XMS_ITS | Encounter Summary ---
Author Organization [place] Address [address] [place] [address]. [place] [address] Care Team Providers Care Parts Specialist Name Role Phone No Ref-Primary, Physician Primary [...] Answer Date Recorded PHQ-2 Score 2 06/07/2024 [place] Depression Scale Answer Date Recorded Last EPDS [...] Out COVID-19 11/15/2024 11/15/2024 11/15/2024 1:41 PM REGIONAL CLINICAL RESEARCH ASSOCIATE Assessment Noted Time PHQ-9 Depression Total Score: 10 024 10:15 AM CDT documented as of this encounter Care Teams Parts Specialist Relationship Specialty Start Date End Date No Ref-Primary, Physician PCP - General 07/04/19 documented as of this encounter
[2024-12-13 02:49] VITALS: BP 135/72; PULSE 61; RESP 16; O2SAT 94
[2024-12-13 03:08] VITALS: BP 135/72; PULSE 61; RESP 16; TEMP 37.2
== END 2024-12-13 03:08 | disposition home or self-care (01) ==
PROVIDERS: Emergency Provider Family Medicine
DX: F12.188 Cannabis abuse with other cannabis-induced disorder (principal)
CPT/HCPCS: 94761; 96374; 99283; 99284; J2405; J7120